=== PATIENT | male | born 1970 | race Caucasian/White ===

== ENCOUNTER 2023-10-05 10:24 | Emergency (ER) | payer OTHER, SELFPAY ==
[2023-10-05] VITALS (35 sets, daily range): BP systolic 128–157; BP diastolic 87–120; PULSE 64–93; RESP 18; TEMP 36.7; O2SAT 89–96; BMI 27.0
--- NOTE | 2023-10-05 11:08 | ED.GENADULT ---
HPI - General Adult General Time Seen by Provider: 11:08 Date Seen: 10/05/23 Chief complaint: Weakness Stated complaint: Tingly in legs / chest Time Seen by Provider: 10/05/23 11:03 Source: patient, RN notes reviewed and old records reviewed Mode of arrival: ambulatory Limitations: no limitations History of Present Illness HPI narrative: 52-year-old male who presents today with paresthesias. Patient reports ?tingling? and his arms, legs, chest as well as generalized weakness. Reports he was seen at an outside facility 2 days ago, no records are available in patient does not know what findings were. No bowel or bladder incontinence. The patient reports after intercourse he laid down when he tried to get up he had some back pain and weakness in his legs. Since then he has had fairly consistent the weakness and numbness in the legs with some numbness in the arms and occasional shooting paresthesias and pain into the arms and legs. He denies headache, has had some intermittent blurry vision. He has some point chest pain on the anterior just to the right of midline. No shortness of breath, nausea, vomiting, urinary symptoms, abdominal pain. No difficulty walking but says he did some walk far because he feels like his legs might give out. History of hypertension. Related Data Home Medications Medication Instructions Recorded Confirmed amlodipine 2.5 mg tablet 2.5 mg PO DAILY 10/05/23 10/05/23 atorvastatin 10 mg tablet 10 mg PO DAILY 10/05/23 10/05/23 chlorthalidone 25 mg tablet 25 mg PO DAILY 10/05/23 10/05/23 lisinopril 20 mg tablet 20 mg PO DAILY 10/05/23 10/05/23 omeprazole 20 mg tablet,delayed 20 mg PO DAILY 10/05/23 10/05/23 release ropinirole 0.5 mg tablet 0.5 mg PO DAILY 10/05/23 10/05/23 Allergies Allergy/AdvReac Type Severity Reaction Status Date / Time acetaminophen [From Vicodin] AdvReac Mild Rash Verified 10/05/23 10:36 hydrocodone [From Vicodin] AdvReac Mild Rash Verified 10/05/23 10:36 [facility] PFS Social History Smoking Status: Current every day smoker What tobacco products do you use: cigarettes Smoking packs per day: 1.5 Smoking cigarettes per day: 30.0 Do you use any of these nicotine containing products: None How often do you have a drink containing alcohol: never How often do you have six or more drinks on one occasion: Never AUDIT-C Alcohol total score: 0 Non-prescribed substance use: marijuana (any form) Exam Narrative: Exam Narrative: General: Well-developed and well-nourished, no acute distress Head: Atraumatic and normocephalic Eyes: Pupils are equal reactive, extraocular motions intact, conjunctiva clear ENT: External nose and ears are normal, posterior pharynx without erythema or exudate Neck: No midline cervical tenderness, full spontaneous range of motion the neck, trachea midline, no adenopathy Heart: Regular rate and rhythm no murmurs or thrills Lungs: Clear to auscultation bilaterally without wheezes or crackles Abdomen: Soft, nontender, nondistended with active bowel sounds Musculoskeletal: No tenderness, deformity, or edema Neurologic: Awake, alert, and oriented x3. External ocular movements are intact, no diplopia on exam. Pupils are equal and reactive. No upper extremity drift. No lower extremity drift but legs bilaterally are little bit weak. Sensation of the upper lower extremities is intact. Coordination intact with hcadsy-ii-ktyu testing as well as wquf-wu-ysil testing. Psych: Mood and affect are appropriate Skin: No rashes Const: Vital Signs, click to edit/add: Vital Signs - 24 hr 10/05/23 10:30 10/05/23 10:42 10/05/23 10:43 Temperature 98.1 F Pulse Rate 82 89 Pulse Rate [Right Pulse Oximeter] 93 Respiratory Rate 18 Blood Pressure 151/95 H Blood Pressure [Ri ght Upper Arm] 147/93 H Pulse Oximetry 94 93 96 Oxygen Delivery Me thod Room Air 10/05/23 10:45 10/05/23 10:46 10/05/23 11:00 Temperature Pulse Rate 85 89 87 Pulse Rate [Right Pulse Oximeter] Respiratory Rate Blood Pressure 156/96 H Blood Pressure [Ri ght Upper Arm] Pulse Oximetry 93 96 93 Oxygen Delivery Me thod 10/05/23 11:01 10/05/23 11:01 10/05/23 11:15 Temperature Pulse Rate 77 77 81 Pulse Rate [Right Pulse Oximeter] Respiratory Rate Blood Pressure 132/95 H 132/95 H Blood Pressure [Ri ght Upper Arm] Pulse Oximetry 93 93 92 Oxygen Delivery Me thod 10/05/23 11:16 10/05/23 11:30 10/05/23 11:31 Temperature Pulse Rate 75 80 Pulse Rate [Right Pulse Oximeter] Respiratory Rate Blood Pressure 138/87 139/120 H Blood Pressure [Ri ght Upper Arm] Pulse Oximetry 92 93 Oxygen Delivery Me thod 10/05/23 11:45 10/05/23 11:46 10/05/23 12:00 Temperature Pulse Rate 73 77 75 Pulse Rate [Right Pulse Oximeter] Respiratory Rate Blood Pressure 140/94 H Blood Pressure [Ri ght Upper Arm] Pulse Oximetry 93 95 93 Oxygen Delivery Me thod 10/05/23 12:01 10/05/23 12:28 10/05/23 12:30 Temperature Pulse Rate 72 65 69 Pulse Rate [Right Pulse Oximeter] Respiratory Rate Blood Pressure 128/99 H Blood Pressure [Ri ght Upper Arm] Pulse Oximetry 94 92 93 Oxygen Delivery Me thod 10/05/23 12:31 10/05/23 12:45 10/05/23 12:46 Temperature Pulse Rate 69 71 73 Pulse Rate [Right Pulse Oximeter] Respiratory Rate Blood Pressure 136/90 H 141/95 H Blood Pressure [Ri ght Upper Arm] Pulse Oximetry 92 92 91 Oxygen Delivery Me thod 10/05/23 13:01 10/05/23 13:15 10/05/23 13:30 Temperature Pulse Rate 68 68 68 Pulse Rate [Right Pulse Oximeter] Respiratory Rate Blood Pressure 133/95 H Blood Pressure [Ri ght Upper Arm] Pulse Oximetry 90 91 89 Oxygen Delivery Me thod 10/05/23 13:31 10/05/23 13:46 10/05/23 14:01 Temperature Pulse Rate 69 64 65 Pulse Rate [Right Pulse Oximeter] Respiratory Rate Blood Pressure 129/96 H 137/95 H Blood Pressure [Ri ght Upper Arm] Pulse Oximetry 93 90 90 Oxygen Delivery Me thod 10/05/23 14:02 10/05/23 14:31 10/05/23 14:33 Temperature Pulse Rate 65 67 75 Pulse Rate [Right Pulse Oximeter] Respiratory Rate Blood Pressure 144/96 H Blood Pressure [Ri ght Upper Arm] Pulse Oximetry 90 93 93 Oxygen Delivery Me thod 10/05/23 14:34 10/05/23 14:45 10/05/23 15:01 Temperature Pulse Rate 69 69 69 Pulse Rate [Right Pulse Oximeter] Respiratory Rate Blood Pressure 157/98 H Blood Pressure [Ri ght Upper Arm] Pulse Oximetry 93 92 95 Oxygen Delivery Me thod 10/05/23 15:16 10/05/23 15:30 10/05/23 15:31 Temperature Pulse Rate 70 72 72 Pulse Rate [Right Pulse Oximeter] Respiratory Rate Blood Pressure 157/92 H Blood Pressure [Ri ght Upper Arm] Pulse Oximetry 94 94 93 Oxygen Delivery Me thod Course Course ED Course: Patient seen and examined, prior records reviewed. Patient presents with several days of diffuse paresthesias in lower extremity weakness. Denies neck pain and has full spontaneous range of motion the neck, did have some back pain at onset of symptoms but that has resolved, no double vision. Patient was seen in outside facility? they did do anything? including imaging or blood testing. Consider neurologic dysfunction, including possible spinal epidural hemorrhage given onset after intercourse. No headache, intracerebral pathology is unlikely but CT scan is ordered to evaluate. We plan on MRI of the spine to evaluate for mass, hemorrhage, or neuro degenerative condition. Denies history of alcohol use so alcoholic neuropathy is unlikely, also consider Guillain-Clayton syndrome but clinically this is unlikely given symptom onset and progression. Multiple sclerosis or other neurodegenerative condition possible. Reevaluation(s) Time of Reevaluation #1: 13:47 Reevaluation #1: Labs ordered and independently interpreted by me with mild leukocytosis, reassuring basic metabolic panel, reassuring hepatic panel, normal magnesium, normal CK. CT scan of the head independently interpreted by me negative for acute findings, CT scan of the cervical spine intubated by radiology and reviewed does not demonstrate any acute findings. Time of Reevaluation #2: 18:20 Reevaluation #2: MRI of the cervical spine demonstrates C5-6 moderate spinal canal and moderate to severe neuroforaminal stenosis with impingement on the C6 nerves, also at L4-5 small disc protrusion which abuts the left L5 nerves with some neural foraminal narrowing. Mild speech dental canal narrowing at T6-7. Overall, patient is having some upper extremity symptoms which may be from the C6 nerve impingement. Patient will be started on prednisone taper and should follow-up with spine surgery. Vital Signs Vital signs: Initial Vital Signs Temperature 98.1 F 10/05/23 10:30 Temperature Source Temporal Artery Scan 10/05/23 10:30 Pulse Rate 93 10/05/23 10:30 Pulse Rhythm Regular 10/05/23 10:30 Respiratory Rate 18 10/05/23 10:30 Blood Pressure 147/93 H 10/05/23 10:30 Blood Pressure Mean 111 H 10/05/23 10:30 Blood Pressure Position Sitting 10/05/23 10:30 Pulse Oximetry 94 10/05/23 10:30 Oxygen Delivery Method Room Air 10/05/23 10:30 Vital Signs Temperature 98.1 F 10/05/23 10:30 Pulse Rate 93 10/05/23 10:30 Respiratory Rate 18 10/05/23 10:30 Blood Pressure 147/93 H 10/05/23 10:30 Pulse Oximetry 94 10/05/23 10:30 Oxygen Delivery Method Room Air 10/05/23 10:30 Temperature 98.1 F 10/05/23 10:30 Pulse Rate 72 10/05/23 15:31 Respiratory Rate 18 10/05/23 10:30 Blood Pressure 157/92 H 10/05/23 15:31 Pulse Oximetry 93 10/05/23 15:31 Oxygen Delivery Method Room Air 10/05/23 10:30 Medical Decision Making Lab Data Labs: Lab Results 10/05/23 Range/Units 11:40 WBC 11.31 H (4.50-11.00) K/uL RBC 5.54 (4.30-5.90) m/uL Hgb 16.1 (13.5-17.5) gm/dL Hct 49.6 (37.0-53.0) % MCV 90 (80-100) fL MCH 29 (26-34) pg MCHC 33 (32-36) gm/dL RDW Coeff of Hayder 13.7 (11.5-15.5) % Plt Count 267 (140-440) K/uL Neut % (Auto) 70.6 (42.0-72.0) % Lymph % (Auto) 22.0 (20-44) % [place] % (Auto) 5.2 (0.0-11.0) % Eos % (Auto) 1.8 (0.0-7.0) % Baso % (Auto) 0.3 (0.0-3.0) % Neut # (Auto) 8.00 H (1.7-7.0) K/uL Lymph # (Auto) 2.50 (0.90-2.90) K/uL [place] # (Auto) 0.60 (0.00-0.90) K/UL Eos # (Auto) 0.20 (0.00-0.50) K/uL Baso # (Auto) 0.00 (0.00-0.30) K/uL Abs Immat Gran (auto) 0.00 (0.00-0.30) K/uL Imm/Tot Granulo (auto) 0.1 % Sodium 142 (135-149) mmol/L Potassium 3.4 L (3.6-5.1) mmol/L Chloride 103 (96-114) mmol/L Carbon Dioxide 28 (20-32) mmol/L Anion Gap 11 (7-15) mEq/L BUN 19 (7-30) mg/dL Creatinine 0.7 (0.5-1.5) mg/dL Estimated Creat Clear 145.15 Estimated GFR 112 ml/min Glucose 69 (60-115) mg/dL Calcium 9.7 (8.4-10.6) mg/dL Magnesium 2.2 (1.5-2.6) mg/dL Total Bilirubin 0.5 (0.1-1.5) mg/dL Direct Bilirubin 0.2 (0.0-0.5) mg/dL AST 23 (12-35) U/L ALT 23 (4-50) U/L Alkaline Phosphatase 96 (40-150) U/L Total Creatine Kinase 45 L (54-186) U/L Total Protein 8.2 (6.0-8.3) g/dL Albumin 4.6 (3.3-5.0) g/dL Discharge Plan Discharge Clinical Impression: Paresthesia, Cervical spinal stenosis, C6 radiculopathy Patient Disposition: Home, Self-Care Condition: Stable Instructions: Cervical Spinal Stenosis (ED), Paresthesia (ED) Additional Instructions: Call [facility] ([phone]) or [facility] ([phone], ) to schedule an appointment. Take prednisone as prescribed Activity Level: No strenuous activity Discharge Diet: Regular Prescriptions: No Action chlorthalidone 25 mg tablet 25 mg PO DAILY amlodipine 2.5 mg tablet 2.5 mg PO DAILY lisinopril 20 mg tablet 20 mg PO DAILY omeprazole 20 mg tablet,delayed release (DR/EC) 20 mg PO DAILY ropinirole 0.5 mg tablet 0.5 mg PO DAILY atorvastatin 10 mg tablet 10 mg PO DAILY Follow Up/Referrals: Provider,Not a Local [Primary Care Provider] - Stand Alone Forms: [employer] Info Instructions
--- NOTE | 2023-10-05 11:31 | CT_ITS ---
Patient: ARMIDA HOYOS Facility:?[facility] Patient ID:?[id number] Site Patient ID:?[id number]. Site :?1970 Study:?CT-Spine Cervical w/o-10/05/2023 12:25:50 PM Ordering Physician:Mj Sharpe Final Report: INDICATION: Paresthesia. TECHNIQUE: CT cervical spine without contrast. COMPARISON: None. FINDINGS: Vertebrae: Alignment is normal. There are no fractures or suspicious bony lesions. Discs and facet joints: There are minimal diffuse degenerative changes in the disc spaces and facet joints. Extraspinal findings: Paraspinous soft tissues are unremarkable. IMPRESSION: 1. No sign of acute injury. 2. Multilevel degenerative spondylosis. Please note that all CT scans at this facility use dose modulation, iterative reconstruction, and/or weight-based dosing when appropriate to reduce radiation dose to as low as reasonably achievable. Dictated by Andrea Junior MD @ 10/05/2023 12:38:28 PM Signed by:?Andrea Junior MD @10/05/2023 12:38:28 PM (Electronic Signature)
--- NOTE | 2023-10-05 11:32 | CT_ITS ---
Patient: ARMIDA HOYOS Facility:?[facility] Patient ID:?[id number] Site Patient ID:?[id number]. Site :?1970 Study:?CT-Head w/o-10/05/2023 12:25:12 PM Ordering Physician:Mj Sharpe Final Report: INDICATION: . TECHNIQUE: CT head without contrast. COMPARISON: None. FINDINGS: CSF spaces: Within normal limits for age. Brain parenchyma and extra-axial spaces: The benites-white differentiation is normal. No sign of mass, hemorrhage, or midline shift. No extra-axial fluid collection. Skull base and calvarium: The visualized paranasal sinuses and mastoid air cells demonstrate no acute or significant findings. The visualized orbits are grossly unremarkable. No skull fractures. No radiopaque foreign bodies about the orbits. IMPRESSION: No acute intracranial abnormality on this noncontrast CT scan. Please note that all CT scans at this facility use dose modulation, iterative reconstruction, and/or weight-based dosing when appropriate to reduce radiation dose to as low as reasonably achievable. Dictated by Andrea Junior MD @ 10/05/2023 12:34:23 PM Signed by:?Andrea Junior MD @10/05/2023 12:34:23 PM (Electronic Signature)
[2023-10-05 12:02] LABS: Basophils Percent Auto 0.3 % (0.0-3.0); Eosinophils Percent Auto 1.8 % (0.0-7.0); Hematocrit 49.6 % (37.0-53.0); Hemoglobin* 16.1 gm/dL (13.5-17.5); Immature Granulocytes Pct Auto 0.1 %; Mean Corpuscular HGB Conc 33 gm/dL (32-36); Mean Corpuscular Hemoglobin 29 pg (26-34); Mean Corpuscular Volume 90 fL (80-100); Monocytes Percent Auto 5.2 % (0.0-11.0); Neutrophils Percent Auto 70.6 % (42.0-72.0); Platelet Count* 267 K/uL (140-440); RDW Coefficient of Variation % 13.7 % (11.5-15.5); Red Blood Count 5.54 m/uL (4.30-5.90); White Blood Count* 11.31 K/uL (4.50-11.00)
--- NOTE | 2023-10-05 12:15 | MR_ITS ---
Patient: ARMIDA HOYOS Facility:?[facility] Patient ID:?[id number] Site Patient ID:?[id number]. Site :?1970 Study:?MRI-Spine Thoracic W/WO 20 CC DOTAREM-10/05/2023 5:46:05 PM Ordering Physician:VELIA BARFIELD Final Report: Indication: Numbness. Weakness. Technique: MRI of the cervical spine was performed without and with the use of intravenous contrast. MRI of the thoracic spine was performed without and with the use of intravenous contrast. MRI of the lumbar spine was performed without and with the use of intravenous contrast. Contrast: 20 cc Dotarem. Comparison: CT cervical spine same day. Findings: Cervical: The vertebral body heights are maintained without evidence of fracture. No marrow infiltrative process. Mild multilevel disc desiccation and height loss. Straightening of the cervical lordosis. No abnormal cord signal. No abnormal enhancement. C2-3: No spinal canal or neural foraminal narrowing. C3-4: No spinal canal narrowing. Mild neural foraminal narrowing secondary to uncovertebral joint and facet hypertrophy. C4-5: No spinal canal narrowing. Mild neural foraminal narrowing secondary to uncovertebral joint and facet hypertrophy. C5-6: Disc bulge results in whem-ow-gswbruqo spinal canal narrowing. Moderately severe neural foraminal narrowing secondary to uncovertebral joint and facet hypertrophy. Potential impingement of the C6 nerves. C6-7: No spinal canal or neural foraminal narrowing. C7-T1: No spinal canal or neural foraminal narrowing. Thoracic: The thoracic vertebral body heights are maintained without evidence of fracture. No discrete T1 hypointense marrow infiltrative process. Mild multilevel disc height loss and degeneration, moderate at T6-7. Hemangioma within the T9 vertebral body. T6-7: Disc bulge effaces the ventral thecal sac and results in mild spinal canal narrowing. No neural foraminal narrowing. Minimal spondylosis throughout the remaining thoracic levels. No abnormal cord signal or enhancement. Lumbar: There are 5 lumbar type vertebral segments. No marrow infiltrative process. No significant spondylolisthesis. The conus medullaris terminates at L1, normal. Cauda equina appears unremarkable. No abnormal enhancement. T12-L1: No spinal canal or neural foraminal stenosis. L1-2: No spinal canal or neural foraminal stenosis. L2-3: Disc bulge coupled with facet hypertrophy results in mild spinal canal narrowing. Mild neural foraminal narrowing. Mild facet arthropathy. L3-4: Disc degeneration. Disc bulge coupled with facet hypertrophy results in mild spinal canal narrowing. Qhbo-sr-echxpsud right and mild left neural foraminal narrowing. Mild facet arthropathy. L4-5: Disc degeneration. Disc bulge, with superimposed small left subarticular disc protrusion. Disc protrusion abuts the descending left L5 nerves. Mild to moderate left and mild right neural foraminal narrowing. Moderate facet arthropathy. L5-S1: No spinal canal or neural foraminal stenosis. Mild sacroiliac joint osteoarthritis. Impression: Cervical: 1. At C5-6, mild to moderate spinal canal with moderately severe neural foraminal stenosis. Potential impingement of the C6 nerves. 2. Moderate spondylosis at the remaining cervical levels. 3. No abnormal cord signal or enhancement. Thoracic: 1. At T6-7, mild spinal canal narrowing. 2. No abnormal cord signal or enhancement. Lumbar: 1. At L2-3, mild spinal canal and neural foraminal narrowing. 2. At L3-4, mild spinal canal with idix-di-sesrryjw right and mild left neural foraminal narrowing. 3. At L4-5, small left subarticular disc protrusion abuts the descending left L5 nerves. Mild to moderate left and mild right neural foraminal narrowing. 4. No abnormal enhancement. Dictated by Demetrius Ashley MD @ 10/05/2023 6:14:58 PM Signed by:?Demetrius Ashley MD @10/05/2023 6:14:58 PM (Electronic Signature)
--- NOTE | 2023-10-05 12:15 | MR_ITS ---
Patient: ARMIDA HOYOS Facility:?[facility] Patient ID:?[id number] Site Patient ID:?[id number]. Site :?1970 Study:?MRI-Spine Cervical W/WO 20 CC DOTAREM-10/05/2023 5:47:32 PM Ordering Physician:VELIA BARFIELD Final Report: Indication: Numbness. Weakness. Technique: MRI of the cervical spine was performed without and with the use of intravenous contrast. MRI of the thoracic spine was performed without and with the use of intravenous contrast. MRI of the lumbar spine was performed without and with the use of intravenous contrast. Contrast: 20 cc Dotarem. Comparison: CT cervical spine same day. Findings: Cervical: The vertebral body heights are maintained without evidence of fracture. No marrow infiltrative process. Mild multilevel disc desiccation and height loss. Straightening of the cervical lordosis. No abnormal cord signal. No abnormal enhancement. C2-3: No spinal canal or neural foraminal narrowing. C3-4: No spinal canal narrowing. Mild neural foraminal narrowing secondary to uncovertebral joint and facet hypertrophy. C4-5: No spinal canal narrowing. Mild neural foraminal narrowing secondary to uncovertebral joint and facet hypertrophy. C5-6: Disc bulge results in hdim-ji-dhedzynn spinal canal narrowing. Moderately severe neural foraminal narrowing secondary to uncovertebral joint and facet hypertrophy. Potential impingement of the C6 nerves. C6-7: No spinal canal or neural foraminal narrowing. C7-T1: No spinal canal or neural foraminal narrowing. Thoracic: The thoracic vertebral body heights are maintained without evidence of fracture. No discrete T1 hypointense marrow infiltrative process. Mild multilevel disc height loss and degeneration, moderate at T6-7. Hemangioma within the T9 vertebral body. T6-7: Disc bulge effaces the ventral thecal sac and results in mild spinal canal narrowing. No neural foraminal narrowing. Minimal spondylosis throughout the remaining thoracic levels. No abnormal cord signal or enhancement. Lumbar: There are 5 lumbar type vertebral segments. No marrow infiltrative process. No significant spondylolisthesis. The conus medullaris terminates at L1, normal. Cauda equina appears unremarkable. No abnormal enhancement. T12-L1: No spinal canal or neural foraminal stenosis. L1-2: No spinal canal or neural foraminal stenosis. L2-3: Disc bulge coupled with facet hypertrophy results in mild spinal canal narrowing. Mild neural foraminal narrowing. Mild facet arthropathy. L3-4: Disc degeneration. Disc bulge coupled with facet hypertrophy results in mild spinal canal narrowing. Lmyc-we-ynrwjnys right and mild left neural foraminal narrowing. Mild facet arthropathy. L4-5: Disc degeneration. Disc bulge, with superimposed small left subarticular disc protrusion. Disc protrusion abuts the descending left L5 nerves. Mild to moderate left and mild right neural foraminal narrowing. Moderate facet arthropathy. L5-S1: No spinal canal or neural foraminal stenosis. Mild sacroiliac joint osteoarthritis. Impression: Cervical: 1. At C5-6, mild to moderate spinal canal with moderately severe neural foraminal stenosis. Potential impingement of the C6 nerves. 2. Moderate spondylosis at the remaining cervical levels. 3. No abnormal cord signal or enhancement. Thoracic: 1. At T6-7, mild spinal canal narrowing. 2. No abnormal cord signal or enhancement. Lumbar: 1. At L2-3, mild spinal canal and neural foraminal narrowing. 2. At L3-4, mild spinal canal with hxqg-hx-jreqrrzi right and mild left neural foraminal narrowing. 3. At L4-5, small left subarticular disc protrusion abuts the descending left L5 nerves. Mild to moderate left and mild right neural foraminal narrowing. 4. No abnormal enhancement. Dictated by Demetrius Ashley MD @ 10/05/2023 6:13:47 PM Signed by:?Demetrius Ashley MD @10/05/2023 6:13:47 PM (Electronic Signature)
--- NOTE | 2023-10-05 12:15 | MR_ITS ---
Patient: ARMIDA HOYOS Facility:?[facility] RIS Patient ID:?[id number] Site Patient ID:?[id number]. Site :?1970 Study:?MRI-Spine Lumbar W/WO 20 CC DOTAREM-10/05/2023 5:48:50 PM Ordering Physician:VELIA BARFIELD Final Report: Indication: Numbness. Weakness. Technique: MRI of the cervical spine was performed without and with the use of intravenous contrast. MRI of the thoracic spine was performed without and with the use of intravenous contrast. MRI of the lumbar spine was performed without and with the use of intravenous contrast. Contrast: 20 cc Dotarem. Comparison: CT cervical spine same day. Findings: Cervical: The vertebral body heights are maintained without evidence of fracture. No marrow infiltrative process. Mild multilevel disc desiccation and height loss. Straightening of the cervical lordosis. No abnormal cord signal. No abnormal enhancement. C2-3: No spinal canal or neural foraminal narrowing. C3-4: No spinal canal narrowing. Mild neural foraminal narrowing secondary to uncovertebral joint and facet hypertrophy. C4-5: No spinal canal narrowing. Mild neural foraminal narrowing secondary to uncovertebral joint and facet hypertrophy. C5-6: Disc bulge results in vinp-eq-vcidkgcm spinal canal narrowing. Moderately severe neural foraminal narrowing secondary to uncovertebral joint and facet hypertrophy. Potential impingement of the C6 nerves. C6-7: No spinal canal or neural foraminal narrowing. C7-T1: No spinal canal or neural foraminal narrowing. Thoracic: The thoracic vertebral body heights are maintained without evidence of fracture. No discrete T1 hypointense marrow infiltrative process. Mild multilevel disc height loss and degeneration, moderate at T6-7. Hemangioma within the T9 vertebral body. T6-7: Disc bulge effaces the ventral thecal sac and results in mild spinal canal narrowing. No neural foraminal narrowing. Minimal spondylosis throughout the remaining thoracic levels. No abnormal cord signal or enhancement. Lumbar: There are 5 lumbar type vertebral segments. No marrow infiltrative process. No significant spondylolisthesis. The conus medullaris terminates at L1, normal. Cauda equina appears unremarkable. No abnormal enhancement. T12-L1: No spinal canal or neural foraminal stenosis. L1-2: No spinal canal or neural foraminal stenosis. L2-3: Disc bulge coupled with facet hypertrophy results in mild spinal canal narrowing. Mild neural foraminal narrowing. Mild facet arthropathy. L3-4: Disc degeneration. Disc bulge coupled with facet hypertrophy results in mild spinal canal narrowing. Dait-ji-tdiwegbt right and mild left neural foraminal narrowing. Mild facet arthropathy. L4-5: Disc degeneration. Disc bulge, with superimposed small left subarticular disc protrusion. Disc protrusion abuts the descending left L5 nerves. Mild to moderate left and mild right neural foraminal narrowing. Moderate facet arthropathy. L5-S1: No spinal canal or neural foraminal stenosis. Mild sacroiliac joint osteoarthritis. Impression: Cervical: 1. At C5-6, mild to moderate spinal canal with moderately severe neural foraminal stenosis. Potential impingement of the C6 nerves. 2. Moderate spondylosis at the remaining cervical levels. 3. No abnormal cord signal or enhancement. Thoracic: 1. At T6-7, mild spinal canal narrowing. 2. No abnormal cord signal or enhancement. Lumbar: 1. At L2-3, mild spinal canal and neural foraminal narrowing. 2. At L3-4, mild spinal canal with ibor-qa-sarbapdq right and mild left neural foraminal narrowing. 3. At L4-5, small left subarticular disc protrusion abuts the descending left L5 nerves. Mild to moderate left and mild right neural foraminal narrowing. 4. No abnormal enhancement. Dictated by Demetrius Ashley MD @ 10/05/2023 6:16:12 PM Signed by:?Demetrius Ashley MD @10/05/2023 6:16:12 PM (Electronic Signature)
[2023-10-05 12:16] LABS: Slide Review Reflex No
[2023-10-05 12:19] LABS: Albumin* 4.6 g/dL (3.3-5.0)
[2023-10-05 12:22] LABS: Aspartate Amino Transferase* 23 U/L (12-35); Bilirubin Direct* 0.2 mg/dL (0.0-0.5); Bilirubin Total* 0.5 mg/dL (0.1-1.5); Creatine Kinase* 45 U/L (54-186); Total Protein* 8.2 g/dL (6.0-8.3)
[2023-10-05 12:23] LABS: Alanine Aminotransferase* 23 U/L (4-50); Alkaline Phosphatase* 96 U/L (40-150)
[2023-10-05 12:40] LABS: Chloride* 103 mmol/L (96-114); Potassium* 3.4 mmol/L (3.6-5.1); Sodium* 142 mmol/L (135-149)
[2023-10-05 12:43] LABS: Anion Gap 11 mEq/L (7-15); Carbon Dioxide* 28 mmol/L (20-32); Creatinine* 0.7 mg/dL (0.5-1.5); Est. Creatinine Clearance* 145.15; Estimated Glomerular Filt Rate 112 ml/min
[2023-10-05 12:44] LABS: Blood Urea Nitrogen* 19 mg/dL (7-30); Calcium* 9.7 mg/dL (8.4-10.6); Glucose* 69 mg/dL (60-115); Magnesium* 2.2 mg/dL (1.5-2.6)
--- NOTE | 2023-10-05 16:31 | ED.NURSE ---
unable to assess, pt in imaging
--- NOTE | 2023-10-05 17:14 | ED.NURSE ---
Pt in imaging, unable to assess
== END 2023-10-05 18:35 | disposition home or self-care (01) ==
PROVIDERS: Emergency Provider Family Medicine
DX: M48.02 Spinal stenosis, cervical region (principal); M54.12 Radiculopathy, cervical region; R20.2 Paresthesia of skin
CPT/HCPCS: 36415; 70450; 72125; 72156; 72157; 72158; 80048; 80076; 82550; 83735; 85025; 99284; 99285; A9575

== ENCOUNTER 2023-12-18 08:57 | Outpatient (CLI) | payer OTHER, SELFPAY | END 2023-12-18 08:58 | disposition home or self-care (01) | PROVIDERS: PCP Family Medicine; Visit Provider Family Medicine | DX: E78.2 Mixed hyperlipidemia (principal); I10 Essential (primary) hypertension; Z13.0 Encounter for screening for diseases of the blood and blood-forming organs and certain disorders involving the immune mechanism | CPT/HCPCS: 80048; 80061; 84460; 85025 ==

== ENCOUNTER 2025-05-12 08:52 | Outpatient (CLI) | payer OTHER, SELFPAY | END 2025-05-12 08:53 | disposition home or self-care (01) | PROVIDERS: PCP Family Medicine; Visit Provider Family Medicine | DX: Z01.818 Encounter for other preprocedural examination (principal); Z13.9 Encounter for screening, unspecified; E78.2 Mixed hyperlipidemia; I10 Essential (primary) hypertension | CPT/HCPCS: 80048; 80061; 85025; G0103 ==

== ENCOUNTER 2025-05-26 08:55 | Emergency (ER) | payer OTHER, SELFPAY ==
[2025-05-26 08:57] VITALS: BP 137/93; PULSE 94; RESP 18; TEMP 36.7; O2SAT 95; BMI 28.2
--- NOTE | 2025-05-26 09:15 | CRLHL7_ITS ---
For Patients: As a result of the Century Cures Act, medical imaging exams and procedure reports are released immediately into your electronic medical record. You may view this report before your referring provider. If you have questions, please contact your health care provider. INDICATION: Dyspnea, chest pain TECHNIQUE: One view chest COMPARISON: None. FINDINGS: Monitoring leads overlie the chest. Shallow lung volumes. Streaky opacities at the right lung base. Small area left lower lung subsegmental atelectasis. Normal cardiomediastinal silhouette. IMPRESSION: Bibasilar atelectasis. Dictated by Tee Rodríguez MD @ 05/26/2025 9:54:41 AM (Electronically Signed)
[2025-05-26] MEDS: ASPIRIN 81 MG TAB.CHEW 324 MG PO (09:28)
[2025-05-26 09:30] VITALS: BP 148/103; PULSE 87; PULSE 88; RESP 16; RESP 20; O2SAT 91; O2SAT 93; O2SAT 94
[2025-05-26 09:30] LABS: Hematocrit* 51.1 % (37.0-53.0); Hemoglobin* 16.5 gm/dL (13.5-17.5); Immature Granulocytes Abs Auto 0.03 K/uL (0.00-0.30); Immature Granulocytes Pct Auto 0.3 %; Lymphocytes Absolute Auto 2.30 K/uL (0.90-2.90); Mean Corpuscular HGB Conc 32 gm/dL (32-36); Mean Corpuscular Hemoglobin 29 pg (26-34); Mean Corpuscular Volume 89 fL (80-100); RDW Coefficient of Variation % 13.2 % (11.5-15.5); Red Blood Count* 5.76 m/uL (4.30-5.90); White Blood Count* 10.61 K/uL (4.50-11.00)
[2025-05-26 09:31] LABS: Slide Review Reflex No
[2025-05-26 09:34] LABS: Troponin, Point-of-Care* 0.00 ng/ml (0.01-0.04)
--- OUTSIDE RECORDS SUMMARY | 2025-05-26 09:36 | XMS_ITS | Clinical Summary ---
Author Organization [facility] Address [address] [place] [address] Care Team Providers Care Control Engineer Name Role Phone Angela Fay M.D. Primary Care Provider [phone] Source Comments Patient records contain information from all sites at [facility]. For routine questions regarding patient records, call [phone] during business hours, M-F 8:00 AM - 5:00 PM Central Time. Record requests for emergency care only can be directed to [phone] at any time.[facility] Allergies Active Allergy Reactions Criticality Noted Date Comments Hydrocodone-Acetaminophen Nausea Only,Rash 12/13 Vicodin Medications acetaminophen (TYLENOL) 500 mg capsule Take by mouth every 6 (six) hours as needed for pain. 1 tab po as needed Active lisinopriL (PRINIVIL,ZESTR IL) 20 mg tabletIndicatio ns:Hypertension Essential Primary Take 1 tablet (20 mg total) by mouth daily. 90 tablet 3 09/01/2023 Active chlorthalidone (HYGROTON) 25 mg tabletIndicatio ns:Hypertension Essential Primary Take 1 tablet (25 mg total) by mouth daily. 90 tablet 3 09/01/2023 Active atorvastatin (LIPITOR) 10 mg tabletIndicatio ns:Hypertension Essential Primary Take 1 tablet (10 mg total) by mouth daily. 90 tablet 3 09/01/2023 Active omeprazole (PriLOSEC) [address] capsuleIndicati ons:Gastroesoph ageal Reflux Disease Take 1 capsule (20 mg total) by mouth daily. 90 capsule 3 09/01/2023 Active amLODIPine (NORVASC) 2.5 mg tablet Take 1 tablet (2.5 mg total) by mouth daily. 90 tablet 3 09/29/2023 Active rOPINIRole (REQUIP) 0.5 mg tablet Take 0.5 tablets (0.25 mg total) by mouth at bedtime for 3 days, THEN 1 tablet (0.5 mg total) at bedtime for 3 days, THEN 2 tablets (1 mg total) at bedtime. 90 tablet 2 10/02/2023 Active meloxicam (Mobic) 15 mg tabletIndicatio ns:Tear Shoulder Labral Initial Right Take 1 tablet by mouth once daily 90 tablet 03/04/2024 Active Active Problems Problem Noted Date Diagnosed Date Weakness Leg 10/03/2023 Polyp Colon Adenomatous Personal History 022 Diverticulitis Colon 02/22/2022 Nicotine Dependence Cigarettes 02/09/2022 Spermatocele 12/08/2020 Hyperlipidemia 10/13/2020 Gastroesophageal Reflux Disease 10/13/2020 Hypertension Essential Primary 07/10/2020 Pain Low Back Unspecified 06/25/2019 Resolved Problems Problem Noted Date Diagnosed Date Resolved Date Diverticulitis 02/14/2022 02/22/2022 Encounters Date Type Department Care Team Description 04/16/2025 Orders Only [facility] Angela Fay M.D. Monitoring For Therapeutic Drug Therapy from Last 3 Months Immunizations Immunization Administration Dates Next Due Tdap 10/12/2020 Family History Medical History Relation Name Comments Hypertension Father Breast cancer (in one breast) Maternal Grandmother Cancer Maternal Grandmother Breast cancer (in one breast) Mother Cancer Mother Hypertension Mother Breast cancer (in one breast) Sister Hypertension Sister Diabetes type II Uncle maternal Testicular cancer Uncle Relation Name Status Comments Father Alive Maternal Grandmother Mother Alive Sister Alive Uncle Alive Social History Tobacco Use Types Packs/Day Years Used Date Smoking Tobacco: Every Day Cigarettes 1.5 37.5 Started: 12/13/1987 Passive Smoke Exposure: Current Smokeless Tobacco: Never Tobacco Cessation:Ready to Q uit: No; Counseling Given: Yes Comments:pt trying to quit 5-10 cigs daily Alcohol Use Standard Drinks/Week Comments Not Currently 0 (1 standard drink = 0.6 oz pur e alcohol) 1-2 beers annually Humiliation, Afraid, Rape, and Kick questionnair e Answer Date Recorded Within the last year, have y ou been afraid of your partner or ex-partner? No 03/01/2023 Within the last year, have y ou been humiliated or emotionally abused in other ways by your partner or ex-partner? No Within the last year, have y ou been kicked, hit, slapped, or otherwise physically hurt by your partner or ex-partner? No 03/01/2023 Within the last year, have y ou been raped or forced to have any kind of sexual activity by your partner or ex-partner? No 03/01/2023 Hunger Vital Sign Answer Date Recorded Within the past 12 months, y ou worried that your food would run out before you got the money to buy more. Never true 03/01/20 23 Ran Out of Food in the Last Year Not on file 03/01/2023 PRAPARE - Transportation Answer Date Re corded In the past 12 months, has l ack of transportation kept you from medical appointments or from getting medications? No 02/11 In the past 12 months, has l ack of transportation kept you from meetings, work, or from getting things needed for daily living? No 03/01/2023 Housing Stability Answer Date Recorded What is your living situation today? I have a [facility] place to live 03/01/2023 Education Answer Date Recorded What is the highest level of school you have completed or the highest degree you have received? 11th grade 10/12/2020 Sex and Gender Information Value Date Recorded Sex Assigned at Not on file Legal Sex Male 6:09 PM STONE TRIMMER Gender Identity Not on file Sexual Orientation Not on file Last Filed Vital Signs Vital Sign Reading Time Taken Comments Blood Pressure 109/73 10/17/2023 1:12 PM STONE TRIMMER Pulse 79 10/17/2023 1:12 PM STONE TRIMMER Temperature 36.3 C (97.4 F) 10/03/2023 9:58 AM STONE TRIMMER Respiratory Rate 23 06/14/2022 3:40 PM CDT Oxygen Saturation 95% 12/19/2022 10: 04 AM CDT Inhaled Oxygen Concentration - - Weight 96.1 kg (211 lb 13.8 oz) 10/03/2023 9:58 AM STONE TRIMMER Height 185 cm (6' 0.84) 09/01/2023 7:48 AM STONE TRIMMER Body Mass Index 28.08 09/01/2023 7:48 AM STONE TRIMMER Plan of Treatment Health Maintenance Due Date Last Done Comments CT Colonography 1970 Cologuard 1970 Lung Cancer Screening 1970 Hepatitis B Vaccines (1 of 3 - 19+ 3-dose series) 11/16/1990 Pneumococcal vaccine (50+ years) (1 of 2 - PCV) 11/16/1990 Zoster Vaccines (1 of 2) 11/16/2021 Depression Screening (Annual PHQ-2) 08/14/2024 Visit: Chronic Disease, age 18+ 09/01/2024 09/01/2023 Office Visit for Blood Pressure Check / Re-check 10/16/2024 10/17/2023 Tobacco Cessation counseling 10/16/2024 10/17/2023 Creatinine Level (Kidney Function Test) 10/30/2024 10/31/2023, 01/06/2023, 12/19/2022, Additional history exists Potassium Level 10/30/2024 10/31/2023, 12/13, 12/19/2022, Additional history exists Sodium Level 10/30/2024 10/31/2023, 12/13, 12/19/2022, Additional history exists COVID-19 Vaccine ( season) 2025 Influenza Vaccine (#1) 2025 Colonoscopy 09/21/2026 09/21/2023, 06/14/2022 Colorectal Cancer Surveillance 09/21/2026 Fasting Glucose for Diabetes Screening 10/30/2026 10/31/2023, 01/06/2023, 12/19/2022, Additional history exists Lipid (Cholesterol) Screening 12/07/2027 12/06/2022, 02/10/2022, 10/09/2020, Additional history exists DTaP,Tdap,and Td Vaccines (2 - Td or Tdap) 10/12/2030 10/12/2020 HIV Screening Completed 10/12/2020 Hepatitis C Screening Completed 10/12/2020 IPV Vaccines Aged Out No longer eligi ble based on patient's age to complete this topic Medical Devices Implanted Type Area Air Conditioning Supervisor Device Identifier Shelf Expiration Date Model / Serial / Lot [facility] Rs 235 - [id number] Implanted:Qty : 2 on 06/14/2022 by Pablo Fritz M.D. at [facility] Hardware e.g. pins/screws/ rods [employer] [id number] 12/14/2024 [id number] / / [id number] Procedures Procedure Name Priority Date/Time Associated Diagnosis Comments BASIC METABOLIC PANEL, S/P Routine 10/31/2023 9:59 AM CDT Monitoring For Therapeutic Drug Therapy LIPID PANEL, S Routine 12/06/2022 11:56 AM CDT Screening Lipid COLONOSCOPY Routine 06/14/2022 1:48 PM CDT Polyp Colon Adenomatous HCV AB SCRN W/REFLEX TO HCV PCR, S Routine 10/12/2020 9:21 AM STONE TRIMMER Health Maintenance Examination Adult HIV-1/-2 AG AND AB SCREEN, PLASMA Routine 10/12/2020 9:21 AM STONE TRIMMER Health Maintenance Examination Adult from Last 3 Months or Most Recently Relevant to Health Maintenance Results * Basic Metabolic Panel (10/31/2023 9:59 AM CDT) Potassium, P 3.6 3.6 - 5.2 mmol/L 10/31/2023 10:30 AM CDT OW[facility] Sodium, P 143 135 - 145 mmol/L 10/31/2023 10:30 AM CDT [facility] Chloride, P 106 98 - 107 mmol/L 10/31/2023 10:30 AM CDT [facility] Bicarbonate, P 28 22 - 29 mmol/L 10/31/2023 10:30 AM CDT [facility] Anion Gap, P 9 7 - 15 10/31/2023 10:30 AM CDT [facility] BUN (Blood Urea Nitrogen), P 21 8 - 24 mg/dL 10/31/2023 10:30 AM CDT [facility] Creatinine 0.80 0.74 - 1.35 mg/dL 10/31/2023 10:30 AM CDT [facility] Estimated GFR (eGFR) >90 >=60 mL/min/BSA 10/31/2023 10:30 AM CDT [facility] Comment: Estimated GFR calculated using the 2020 CKD_EPI creatinine equation. Calcium, Total, P 9.0 8.6 - 10.0 mg/dL 10/31/2023 10:30 AM CDT [facility] Glucose, P 107 70 - 140 mg/dL 10/31/2023 10:30 AM CDT [facility] Blood (Blood, Venous) 10/31/2023 9:59 AM CDT 10/31/2023 10:06 AM CDT us Angela Fay M.D. LAB BLOOD ADD-ON Final Result [facility] [address] [place] [address], [facility] [place] [address] [place] [address] * (ABNORMAL) Lipid Panel (12/06/2022 11:56 AM CDT) Triglycerides 56 mg/dL 12/06/2022 12:51 PM CDT [facility] Comment: ----REFERENCE VALUE---- Normal: <150 mg/dL Borderline High: 150-199 mg/dL High: 200-499 mg/dL Very High: > or =500 mg/dL Cholesterol, Total 151 mg/dL 2022 12:51 PM CDT [facility] Comment: ----REFERENCE VALUE---- Desirable: < 200 mg/dL Borderline High: 200 - 239 mg/dL High: > or = 240 mg/dL Cholesterol, LDL, Calculated 100 mg/dL 12/06/2022 12:51 PM CDT [facility] Comment: ----REFERENCE VALUE---- Desirable: <100 mg/dL Above Desirable: 100-129 mg/dL Borderline High: 130-159 mg/dL High: 160-189 mg/dL Very High: >=190 mg/dL ----ADDITIONAL INFORMATION---- LDL cholesterol calculated using the Shrestha/NIH equation. Cholesterol, HDL 39(L) >=40 mg/dL 12/07/19 12:51 PM CDT [facility] Cholesterol, Non-HDL, Calculated 112 mg/dL 12/06/2022 12:51 PM CDT [facility] Comment: ----REFERENCE VALUE---- Desirable: <130 mg/dL Above Desirable: 130-159 mg/dL Borderline High: 160-189 mg/dL High: 190-219 mg/dL Very High: > or =220 mg/dL Fasting (8 HR or more) No 12/06/2022 11:59 AM CDT [facility] Blood (Blood, Venous) 12/06/2022 11:56 AM CDT 12/06/2022 11:59 AM CDT us Dilan Lynn APRNNBibi LAB BLOOD ADD-ON Fi nal Result [facility] [address] [place] [address], [facility] [place] [address] [place] [address] * Colonoscopy (06/14/2022 1:48 PM CDT) Anatomical Region Laterality Modality Other 06/14/2022 1:48 PM CDT Impressions 06/14/2022 3:56 PM CDT Post-op Diagnoses: - Preparation of the colon was fair. - The examined portion of the ileum was normal. - Diverticulosis in the left colon. - One 20 mm polyp in the sigmoid colon, removed with a hot snare and removed using injection-lift and a hot snare. Resected and retrieved. Clips (MR conditional) were placed. 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 - One 8 mm polyp in the sigmoid colon, removed with a hot snare. Resected and retrieved. - Two 4 to 6 mm polyps in the transverse colon and in the cecum, removed with a cold snare. Resected and retrieved. - The examination was otherwise normal on direct and retroflexion views. Narrative 06/14/2022 3:56 PM CDT [facility] Patient Name: Oneil Day Date of : 1970 Age: 51 Gender: Male Procedure Date: 06/14/2022 Procedure: Colonoscopy Providers: Pablo Fritz MD Referring Provider: Sachin Liz Pre-op Diagnoses: Therapeutic procedure for known colon polyp Recommendation: - Await pathology results. - Return to referring physician as previously scheduled. - Follow up recommendations for patients with polyps identified during colonoscopy are impacted by several factors including polyp characteristics (size, number and histology), adequacy of colonic preparation and pertinent family history. For [facility] providers, detailed recommendations are available as an AskMayoExpert Care Process Model: <[email or web address] There may be some circumstances, specifically those patients with a personal or family history of significant colorectal neoplasms where these guidelines may not apply. Consider consultation in Gastroenterology for all other polyp findings or for patients who are not at average risk. Findings: The terminal ileum appeared normal. Multiple small and large-mouthed diverticula were found in the left colon. A 20 mm polyp was found in the sigmoid colon. The polyp was sessile. The polyp was removed with a hot snare. The polyp was removed with a saline injection-lift technique using a hot snare. Resection and retrieval were complete. To prevent bleeding after the polypectomy, two hemostatic clips were successfully placed (MR conditional). 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 There was no bleeding during, or at the end, of the procedure. An 8 mm polyp was found in the sigmoid colon. The polyp was sessile. The polyp was removed with a hot snare. Resection and retrieval were complete. Two sessile polyps were found in the transverse colon and cecum. The polyps were 4 to 6 mm in size. These polyps were removed with a cold snare. Resection and retrieval were complete. The exam was otherwise without abnormality on direct and retroflexion views. Procedural Details: The patient was seen, evaluated, history reviewed, airway and heart-lung exams were performed by licensed provider and were satisfactory for planned level of sedation care. The risks, benefits and alternatives for the procedure and sedation were discussed and informed consent was obtained. A procedural pause was conducted in the presence of assisting personnel to verify the correct patient identity and procedure to be performed. Throughout the procedure, the patient's blood pressure, pulse, and oxygen saturations were monitored continuously. The Pediatric Colonoscope was introduced through the anus and advanced to the 5 cm into the ileum. The colonoscopy was somewhat difficult due to restricted mobility of the colon. The patient tolerated the procedure well. The quality of the bowel preparation was evaluated using the BBPS ([place] Bowel Preparation Scale) with scores of: Right Colon = 2 (minor amount of residual staining, small fragments of stool and/or opaque liquid, but mucosa seen well), Transverse Colon = 2 (minor amount of residual staining, small fragments of stool and/or opaque liquid, but mucosa seen well) and Left Colon = 2 (minor amount of residual staining, small fragments of stool and/or opaque liquid, but mucosa seen well). The total BBPS score equals 6. The quality of the bowel preparation was fair. Complications: No immediate complications. Estimated blood loss: Minimal. Estimated Blood Loss: Estimated blood loss was minimal. Attending Participation: I personally performed the entire procedure. Pablo Fritz MD 06/14/2022 3:55:44 PM This report has been signed electronically. Number of Addenda: 0 Note Initiated On: 06/14/2022 1:48 PM Sachin Liz M.D. GI PROCEDURE ORDERABLES Fin al Result * HIV-1/-2 Ag and Ab Screen, Plasma (10/12/2020 9:21 AM STONE TRIMMER) HIV Ag/Ab Screen, P Negative Negative 10/13/2020 10:38 AM STONE TRIMMER [facility] Comment: Negative result does not rule out HIV infection. If exposure to HIV infection occurred <14 days ago, contact the laboratory to request addition of HIV-1 RNA detection / quantification test. HIV-1 p24 Ag Screen, P Negative Negative 10/13/2020 10:38 AM STONE TRIMMER [facility] Comment: Negative result does not rule out HIV infection. If exposure to HIV infection occurred <14 days ago, contact the laboratory to request addition of HIV-1 RNA detection / quantification test. HIV-1 Ab Screen, P Negative Negative 2020 10:38 AM STONE TRIMMER [facility] Comment: Negative result does not rule out HIV infection. If exposure to HIV infection occurred <14 days ago, contact the laboratory to request addition of HIV-1 RNA detection / quantification test. HIV-2 Ab Screen, P Negative Negative 2020 10:38 AM STONE TRIMMER [facility] Comment: Negative result does not rule out HIV infection. If exposure to HIV infection occurred <14 days ago, contact the laboratory to request addition of HIV-1 RNA detection / quantification test. Blood (Blood, Venous) 10/12/2020 9:21 AM STONE TRIMMER 10/12/2020 6:54 PM STONE TRIMMER Paxton SchusterC., P.A. LAB MICROBIOLOGY - BLOOD ORDERABLES Final Result [facility] [address] [place] [address], [facility] [place] [address] [place] [address] * HCV Ab Scrn w/Reflex to HCV PCR, Serum (10/12/2020 9:21 AM STONE TRIMMER) HCV Ab Screen, S Negative Negative 10/13/2020 8:24 AM STONE TRIMMER [facility] Comment:Ssolcu-di-duklkr rat io is <1.00. Blood (Blood, Venous) 10/12/2020 9:21 AM STONE TRIMMER 10/13/2020 7:22 AM STONE TRIMMER Paxton SchusterC., P.A. LAB MICROBIOLOGY - BLOOD ORDERABLES Final Result [facility] [address] [place] [address] [facility] Dept. of Laboratory Medicine and Pathology [address] [place] [address] from Last 3 Months or Most Recently Relevant to Health Maintenance Insurance [facility] [address] [place] [id number] [place] [employer] Advance Directives For more information, please contact: [phone] * Full Code (Latest Code Status on File) Date Activated Date Inactivated Comments 08/22/2019 4:08 PM 08/23/2019 12:07 PM Question Answer Comments Full Code: Not Discussed Due to: Patient not available * Full Code Date Activated Date Inactivated Comments 08/22/2019 11:20 AM 08/22/2019 4:08 PM Question Answer Comments Full Code: Not Discussed Due to: Patient not available Care Teams Control Engineer Relationship Specialty Start Date End Date Angela Fay M.D. [address] [place] [address] PCP - General 09/01/22
--- OUTSIDE RECORDS SUMMARY | 2025-05-26 09:36 | XMS_ITS | Encounter Summary ---
Author Organization [facility] Address [address] [place] [address] Care Team Providers Care Physician Practice Consultant Name Role Phone Angela Fay M.D. Primary Care Provider [phone] Reason for Referral * Outpatient (Routine) - Authorized Specialty Diagnoses / Procedures Referred By Vincent t Referred To Contact Angela Fay M.D. [address] [phone] Phone: tel: fax: [facility] Referral ID Status Reason Start Date Expiration Date V isits Requested Visits Authorized [id number] Authorized 04/16/2025 10/16/2026 1 1 Encounter Details Date Type Department Care Team (Late st Contact Info) Description 04/16/2025 Orders Only [facility] Angela Fay M.D. [address] [place] [phone] Monitoring For Therapeutic Drug Therapy Social History Tobacco Use Types Packs/Day Years Used Date Smoking Tobacco: Every Day Cigarettes 1.5 37.5 Started: 12/13/1987 Passive Smoke Exposure: Current Smokeless Tobacco: Never Comments:pt trying to quit 5 -10 cigs daily Alcohol Use Standard Drinks/Week Comments [...] your living situation today? I have a [facility] place to live 03/01/2023 Education Answer Date Recorded What is the highest level of school you have completed or the highest degree you have received? 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 [address] [phone] PCP - General 09/01/22 documented as of this encounter
--- OUTSIDE RECORDS SUMMARY | 2025-05-26 09:36 | XMS_ITS | Clinical Summary ---
Author Organization [facility] Address [address] [place] [id number] Care Team Providers Care Transport Tank Technician Name Role Phone Jamin Sheth MD Primary Care Provider Allergies Active Allergy Reactions Criticality Noted Date Comments Hydrocodone-Acetaminophen Nausea,Rash Low 1 Vicodin Medications amLODIPine (NORVASC) 2.5 MG tablet Take 2.5 mg by mouth daily 4 Active atorvastatin (LIPITOR) 10 MG tablet Take 10 mg by mouth daily 4 Active chlorthalidone (HYGROTON) 25 MG tablet Take 25 mg by mouth daily 3 Active lisinopril (ZESTRIL) 20 MG tablet Take 20 mg by mouth daily 3 Active omeprazole (PRILOSEC) [address] capsule Take 20 mg by mouth daily 4 Active rOPINIRole (REQUIP) 0.5 MG tablet Take 0.5 tablets (0.25 mg total) by mouth at bedtime for 3 days, THEN 1 tablet (0.5 mg total) at bedtime for 3 days, THEN 2 tablets (1 mg total) at bedtime. 4 Active gabapentin (NEURONTIN) 300 MG capsule Take 300 mg by mouth 2 times daily Active senna-docusate (SENOKOT-S/PERIC OLACE) 8.6-50 MG tabletIndication s:S/P cervical disc replacement Take 1-2 tablets by mouth 2 times daily Take while on oral narcotics to prevent or treat constipation. 30 tablet 4 Active ondansetron (ZOFRAN ODT) 4 MG ODT tabIndications:S /P cervical disc replacement Take 1 tablet (4 mg) by mouth every 6 hours as needed for nausea or vomiting 20 tablet 4 Active hydrOXYzine HCl (ATARAX) 25 MG tabletIndication s:S/P cervical disc replacement Take 1 tablet (25 mg) by mouth every 6 hours as needed for itching or anxiety (with pain, moderate pain) 30 tablet 4 Active Social History Tobacco Use Types Packs/Day Years Used Date Smoking Tobacco: Every Day Cigarettes Smokeless Tobacco: Never Comments:1-1.5 packs per day Alcohol Use Standard Drinks/Week Comments Not Currently 0 (1 standard drink = 0.6 oz pur e alcohol) Adolescent Education Answer Date Record ed Getting School Help Needed Not on file 12/26 Sex and Gender Information Value Date Recorded Sex Assigned at Not on file Legal Sex Male 3:17 PM CDT Gender Identity Not on file Sexual Orientation Not on file Last Filed Vital Signs Vital Sign Reading Time Taken Comments Blood Pressure 137/98 12/27/2023 4:02 PM CDT Pulse 70 12/27/2023 4:02 PM CDT Temperature 36.6 C (97.9 F) 12/27/2023 4:02 PM CDT Respiratory Rate 16 12/27/2023 4:02 PM CDT Oxygen Saturation 93% 12/27/2023 4:02 PM CDT Inhaled Oxygen Concentration - - Weight 93 kg (205 lb) 12/27/2023 8:18 AM CDT Height 185.4 cm (6' 1) 12/26/2023 3:00 PM CDT Body Mass Index 27.05 12/26/2023 3:00 PM CDT Plan of Treatment Health Maintenance Due Date Last Done Comments ADVANCE CARE PLANNING 1970 ANNUAL REVIEW OF HM ORDERS 1971 CT COLONOGRAPHY 1970 DIABETES SCREENING 1970 FIT 1970 FLEX SIG 1970 LIPID 1971 sDNA (Cologuard) 1970 HEPATITIS B VACCINE (1 of 3 - 19+ 3-dose series) 11/16/1990 YEARLY PREVENTIVE VISIT 10/12/2021 10/12/2020 LUNG CANCER SCREENING 11/16/2021 PNEUMOCOCCAL VACCINE 50+ YEARS (1 of 1 - PCV) 11/16/2021 ZOSTER VACCINE (1 of 2) 11/16/2021 PHQ-2 (once per calendar year) 2024 COVID-19 VACCINE (1 - 2024-2 6 season) 2025 INFLUENZA VACCINE (#1) 2025 DTAP/TDAP/TD VACCINE (2 - Td or Tdap) 10/12/2030 10/12/2020 COLONOSCOPY 09/21/2033 09/21/2023, 06/14/2022 COLORECTAL CANCER SCREENING 09/21/2033 HEPATITIS C SCREENING Completed 10/12/2020 HIV SCREENING Completed 10/12/2020 HPV VACCINE (No Doses Required) Completed MENINGITIS VACCINE Aged Out No longer eligible based on patient's age to complete this topic Medical Devices Implanted Type Area Production Control Technologist Device Identifier Shelf Expiration Date Model / Serial / Lot Disc Lp Prestige 6x16mm [id number] - [id number] Implanted:Qt y: 1 on 12/27/2023 by Oswaldo Velazquez MD at [facility] Total Joint Componen t/Insert N/A: Spine Cervical [employer] [id number] 03/28/2031 [id number] / / [id number] Insurance P [facility] Care Teams Transport Tank Technician Relationship Specialty Start Date End Date Jamin Sheth MD [facility] [address] [place] [address] PCP - General Family Medicine 12/27/23
--- OUTSIDE RECORDS SUMMARY | 2025-05-26 09:36 | XMS_ITS | Clinical Summary ---
Author Organization [facility] Address [address] [place] [address] Care Team Providers Care Analyst Geochemical Prospecting Name Role Phone Pcp, No Primary Care Provider Unavailabl e Allergies Active Allergy Reactions Criticality Noted Date Comments Hydrocodone-Acetaminophen Rash,Nausea Only 10/2010 Vicodin Medications atorvastatin (LIPITOR) 10 mg tablet Take 10 mg by mouth at bedtime. Active omeprazole (PRILOSEC) 20 mg Delayed-Release capsule Take 20 mg by mouth once daily. Active acetaminophen (TYLENOL) 500 mg capsule Take 1 Capsule by mouth every 6 hours if needed. Active chlorthalidone (HYGROTON) 25 mg tablet Take 25 mg by mouth once daily. 12/20/2022 Active meloxicam 15 mg tablet Take 15 mg by mouth once daily. 03/01/2023 Active lisinopriL (PRINIVIL; ZESTRIL) 20 mg tablet Take 20 mg by mouth once daily. Every other day 12/06/2022 Active Active Problems Problem Noted Date Diagnosed Date Diverticulitis 02/14/2022 Tobacco dependence due to cigarettes 02/09/2022 Spermatocele 12/08/2020 Gastroesophageal reflux disease 10/13/2020 Hyperlipidemia 10/13/2020 Primary hypertension 07/10/2020 Low back pain 06/25/2019 S/P hernia surgery Family History Medical History Relation Name Comments Rheum arthritis Brother No Known Problems Father Cancer-breast Mother No Known Problems Sister Relation Name Status Comments Brother Alive Father Alive Mother Alive Sister Alive Social History Tobacco Use Types Packs/Day Years Used Date Smoking Tobacco: Every Day Cigarettes Passive Smoke Exposure: Current Smokeless Tobacco: Never Tobacco Cessation:Ready to Q uit: No; Counseling Given: No Alcohol Use Standard Drinks/Week Comments Not Currently 0 (1 standard drink = 0.6 oz pur e alcohol) PHQ-2 Answer Date Recorded PHQ-2 Score 0 04/19/2019 Social Connections Answer Date Recorded Frequency of Communication with Friends and Fami ly Not on file 11/22/2022 Sex and Gender Information Value Date Recorded Sex Assigned at Not on file Legal Sex Male 7:00 AM SCRAP SORTER Gender Identity Not on file Sexual Orientation Not on file Obstetrics History Last Filed Vital Signs Vital Sign Reading Time Taken Comments Blood Pressure 149/99 09/21/2023 2:45 PM SCRAP SORTER Pulse 72 09/21/2023 2:45 PM SCRAP SORTER Temperature 36.3 C (97.4 F) 09/21/2023 2:13 PM SCRAP SORTER Respiratory Rate 18 09/21/2023 2:45 PM SCRAP SORTER Oxygen Saturation 92% 09/21/2023 2:45 PM SCRAP SORTER Inhaled Oxygen Concentration - - Weight 95 kg (209 lb 8 oz) 09/21/2023 11:[address] Height 185 cm (6' 0.84) 09/12/2023 3:09 PM SCRAP SORTER Body Mass Index 27.77 09/12/2023 3:09 PM SCRAP SORTER Plan of Treatment Health Maintenance Due Date Last Done Comments Tetanus booster 11/16/1982 HIV for age 15-65 11/16/1986 Hepatitis C screening for age 18-79 11/16/1989 Hepatitis B series for 19+ ( 1 of 3 - 19+ 3-dose series) 11/16/1990 Pneumococcal series for age 50+ (1 of 2 - PCV) 11/16/1990 Lipids for age 45-75 11/16/2016 BMI (ht and wt on same day) for age 18+ 04/19/2020 0 04/19/2019 Depression screening for age 12+ 04/19/2020 04/19/20 19 Zoster (shingles) series for age 50+ (1 of 2) 11/16/2021 COVID-19 vaccine series ( - 2023- season) 2025 Influenza Vaccine (#1) 2025 Colonoscopy through age 75 09/21/2033 09/21/2023, RSV vaccine for adults or pr egnancy (1 - 1-dose 75+ series) 11/16/2046 Procedures Procedure Name Priority Date/Time Associated Diagnosis Comments COLONOSCOPY 09/21/2023 1:13 PM SCRAP SORTER from Last 3 Months or Most Recently Relevant to Health Maintenance Results * COLONOSCOPY (09/21/2023 1:13 PM SCRAP SORTER) 09/21/2023 1:13 PM SCRAP SORTER Narrative Transcriptions Leeanna Jay MD - 09/21/2023 2:10 PM CST Patient Name: Oneil Day Procedure Date: 09/21/2023 Gender: Male Date of : 1970 Admit Type: Ambulatory Procedure: Colonoscopy Proceduralist: Leeanna Cason MD Referring MD: Leeanna Cason MD Indications/Pre-Op Diagnosis: High risk colon cancer surveillance:Personal history of colonic polyps, Last colonoscopy: April 2022 Medications: Monitored Anesthesia Care Procedure Description: The procedure, indications, potential complications, (bleeding, perforation, infection, adverse medication reaction, missed lesionsor polyps) and alternatives available were explained to the patient, who appeared to understand and indicated this. Opportunity for questionswas provided and informed consent obtained. The endoscope [id number] was passed through the anus andadvanced to the cecum, identified by appendiceal orifice and ileocecal valve.The colonoscopy was performed without difficulty. The patient toleratedthe procedure well. The quality of the bowel preparation was evaluatedusing the BBPS ([place] Bowel Preparation Scale) with scores of: Right Colon= 2 (minor amount of residual staining, small fragments of stool and/or opaque liquid, but mucosa seen well), Transverse Colon = 2 (minoramount of residual staining, small fragments of stool and/or opaque liquid,but mucosa seen well) and Left Colon = 2 (minor amount of residualstaining, small fragments of stool and/or opaque liquid, but mucosa seen well). The total BBPS score equals 6. Complications: No immediate complications. Estimated Blood Loss & Specimen: Estimated blood loss was minimal. Specimen collected: Yes and sent to Laboratory Findings: The perianal and digital rectal examinations were normal. A 6 mm polyp was found in the cecum. The polyp was sessile. The polyp was removed with a cold snare. Resection and retrieval werecomplete. Two sessile polyps were found in the sigmoid colon. The polyps were 4to 6 mm in size. These polyps were removed with a cold snare. Resectionand retrieval were complete. Multiple diverticula were found in the sigmoid colon. The exam was otherwise without abnormality on direct and retroflexion views. Impressions/Post-Op Diagnosis: - One 6 mm polyp in the cecum, removed with a cold snare. Resectedand retrieved. - Two 4 to 6 mm polyps in the sigmoid colon, removed with a coldsnare. Resected and retrieved. - Diverticulosis in the sigmoid colon. - The examination was otherwise normal on direct and retroflexionviews. Recommendation: - Await pathology results. - Dr. Cason's office will call you with results and follow up instructions Moderate Sedation: see anesthesia report Leeanna Cason MD 09/21/2023 2:10:31 PM This report has been signed electronically. Note Initiated On: 09/21/2023 1:13 PM Leeanna Deshpande MD PROCEDURE ORD Fin al Result from Last 3 Months or Most Recently Relevant to Health Maintenance Insurance [facility] Member Subscriber Plan / Payer (Ef fective 2017-Present) Name:Oneil Day Relation to Subscriber:Employee Name:HORACIO JOHNSON Date of :1999 (Home) Address: [address] [place] [address] [place] [address] Payer ID:Not on file Group ID:Not on file Type:Not on file Address: [facility] CLAIM STRATEGIES [address] [place] [address] [place] [address] [facility] [employer] WORKERS COMP on file Advance Directives * Full Code (Latest Code Status on File) Date Activated Date Inactivated Comments 09/21/2023 11:24 AM 09/21/2023 5:01 PM Question Answer Comments Code Status Discussion: Not Discussed * Full Code Date Activated Date Inactivated Comments 04/22/2022 7:15 AM 04/22/2022 2:35 PM Question Answer Comments Code Status Discussion: Reviewed Preferences * Full Code Date Activated Date Inactivated Comments 04/13/2022 6:42 AM 04/14/2022 2:28 AM Question Answer Comments Code Status Discussion: Not Discussed * Full Code Date Activated Date Inactivated Comments 02/14/2022 1:59 PM 02/16/2022 3:12 PM Question Answer Comments Code Status Discussion: Reviewed Preferences * Full Code Date Activated Date Inactivated Comments 06/24/2013 6:10 AM 06/24/2013 3:55 PM Care Teams Analyst Geochemical Prospecting Relationship Specialty Start Date End Date Pcp, No . PCP - General 09/06/23
[2025-05-26 09:47] LABS: Albumin* 4.2 g/dL (3.3-5.0); Chloride* 102 mmol/L (96-114); Potassium* 3.7 mmol/L (3.6-5.1); Sodium* 135 mmol/L (135-149)
[2025-05-26 09:49] LABS: Blood Urea Nitrogen* 16 mg/dL (7-30); Creatinine* 0.7 mg/dL (0.5-1.5); Est. Creatinine Clearance* 141.89; Estimated Glomerular Filt Rate 110 ml/min
[2025-05-26 09:50] LABS: Alanine Aminotransferase* 22 U/L (4-50); Alkaline Phosphatase* 97 U/L (40-150); Anion Gap 7 mEq/L (7-15); Aspartate Amino Transferase* 23 U/L (12-35); Bilirubin Total* 0.3 mg/dL (0.1-1.5); Calcium* 9.1 mg/dL (8.4-10.6); Carbon Dioxide* 26 mmol/L (20-32); Glucose* 161 mg/dL (60-115); Total Protein* 7.8 g/dL (6.0-8.3)
[2025-05-26 09:51] LABS: D Dimer Quantitative* 0.50 ug/ml (0.00-0.50)
[2025-05-26 10:00] VITALS: BP 137/92; PULSE 86; RESP 16; O2SAT 95
--- NOTE | 2025-05-26 10:16 | ED.GENADULT ---
HPI - General Adult General Date Seen: 05/26/25 Chief complaint: Chest Pain Stated complaint: Chest pain, difficulty breathing, dizzy, lighthead Time Seen by Provider: 05/26/25 09:20 History of Present Illness HPI narrative: Patient is a 54-year-old here for evaluation of chest pain which he has noticed for the past couple of days. It is in a localized area in his left chest. Sometimes is pleuritic. He has felt a little bit short of breath and sometimes has tingling in his left arm. He has a physical job and has not noticed any worsening of symptoms while at work. He has no prior history of heart disease, DVT or PE. He does smoke although he says he is trying to quit. Has not had fevers, cough, unusual leg swelling or pain, recent travel or immobility. Related Data Previous Rx's ?Medication ?Instructions ?Recorded lisinopril 20 1 tab PO QDAY #30 tabs 05/12/25 mg-hydrochlorothiazide 25 mg tablet Allergies Allergy/AdvReac Type Severity Reaction Status Date / Time acetaminophen (From Vicodin) AdvReac Mild Rash Verified 05/26/25 09:03 hydrocodone (From Vicodin) AdvReac Mild Rash Verified 05/26/25 09:03 Review of Systems Status of ROS: Reports: 6 or more systems reviewed and unremarkable except as noted in History and below [facility] Medical History History of basal cell carcinoma (BCC) ?Z85.828 - Personal history of other malignant neoplasm of skin (ICD-10) Diverticulosis ?K57.90 - Diverticulosis of intestine, part unspecified, without perforation or abscess without bleeding (ICD-10) Raynaud's disease ?I73.00 - Raynaud's syndrome without gangrene (ICD-10) Mild obstructive sleep apnea ?G47.33 - Obstructive sleep apnea (adult) (pediatric) (ICD-10) History of adenomatous polyp of colon ?Z86.0101 - Personal history of adenomatous and serrated colon polyps (ICD-10) Tobacco abuse ?Z72.0 - Tobacco use (ICD-10) Cervical radiculopathy ?M54.12 - Radiculopathy, cervical region (ICD-10) GERD (gastroesophageal reflux disease) ?K21.9 - Gastro-esophageal reflux disease without esophagitis (ICD-10) Restless leg syndrome ?G25.81 - Restless legs syndrome (ICD-10) Primary hypertension ?I10 - Essential (primary) hypertension (ICD-10) Mixed hyperlipidemia ?E78.2 - Mixed hyperlipidemia (ICD-10) Surgical History History of hernia repair ?Z98.890 - Other specified postprocedural states (ICD-10) ?Z87.19 - Personal history of other diseases of the digestive system (ICD-10) History of shoulder surgery ?Z98.890 - Other specified postprocedural states (ICD-10) History of lumbar discectomy (2019) ?Z98.890 - Other specified postprocedural states (ICD-10) History of left knee surgery ?Z98.890 - Other specified postprocedural states (ICD-10) Family History Mother Breast cancer High blood pressure Brother Rheumatoid arthritis Father High blood pressure Maternal Grandmother Breast cancer Sister High blood pressure Uncle Diabetes Testicular cancer Social History What is your current living situation?: I presently have a place to live Problems where you live: no known problems In the past 12 months, utilities in danger of being shut off: no In past 12 months, lack of transportation kept you from medical appts, meetings, work, or getting things needed for daily living: no In the past 12 mos, have been you worried that your food would run out before you had money to buy more?: never true In the past 12 mos, the food you bought just didn't last and you didn't have money to buy more?: never true Smoking Status: Current every day smoker What tobacco products do you use: cigarettes Smoking packs per day: 1 Smoking cigarettes per day: 20.0 Do you use any of these nicotine containing products: None How often do you have a drink containing alcohol: never How often do you have six or more drinks on one occasion: Never AUDIT-C Alcohol total score: 0 Non-prescribed substance use: marijuana (any form) How often does anyone, including family, friends and others, physically hurt you: never How often does anyone, including family, friends and others, insult or talk down to you: never How often does anyone, including family, friends and others, threaten you with harm: never How often does anyone, including family, friends and others, scream or curse at you: never service: No Exam Narrative: Exam Narrative: Vital signs reviewed In general, alert, nontoxic mid age male, breathing easily. Head: Normocephalic, atraumatic. Eyes: Sclera clear. Pupils equal and reactive. ENT: Mucous membranes moist. Neck: Supple without adenopathy. Heart: Regular rate and rhythm without murmur. Chest wall is nontender. Lungs: Clear. No increased work of breathing, crackles or wheezes. Abdomen: Soft, nontender to palpation. Extremities: Well perfused, pulses intact. No significant edema. Neurologic: Alert, conversant. Speech fluent, face symmetric. Moves all extremities equally. Skin: Warm, dry well perfused. Affect: Normal. Const: Vital Signs, click to edit/add: Vital Signs - 24 hr 05/26/25 08:57 05/26/25 09:30 05/26/25 09:30 Temperature 98.1 F Pulse Rate [Pulse Oximeter] 94 87 Respiratory Rate 18 20 Blood Pressure [Ri ght Upper Arm] 137/93 H 148/103 H Pulse Oximetry 95 94 91 Oxygen Delivery Me thod Room Air Room Air Course Course ED Course: Patient had an EKG on arrival. By my review this shows a sinus rhythm, ventricular rate of 89. Q-waves are seen in AVF and 3, likely a small Q-wave in lead 2 as well but there are no acute ST segment changes, no reciprocal changes, T-waves are unremarkable. I did give him an aspirin on arrival, routine labs ordered, chest x-ray by my review did not show infiltrate, significant congestive heart failure, pleural effusion or pneumothorax. Radiology report reviewed, they note bibasilar atelectasis otherwise negative. Patient's labs here are unremarkable, his troponin is 0, D-dimer is 0.5. White blood cell count and hemoglobin are normal LFTs are normal. Abdominal exam is benign, I do not suspect pancreatitis, gallbladder disease, gastroesophageal reflux, gastritis or other GI source for his pain. Pain is localized in a small area in the left chest and is somewhat pleuritic. Negative D-dimer I think adequately rules out pulmonary embolism, with 2 days of symptoms I think a single troponin adequately rules out acute coronary syndrome. Given his age and smoking status it may be reasonable to have him follow-up with a stress test, but I think symptoms most likely at this point are musculoskeletal. Discussed stress testing with him, he would like to follow-up with Dr. Sheth to discuss this further. I think that is reasonable given the circumstances. His job involves a lot of upper body work, so I have written a note to be off of work for couple of days in case this is muscular. Reasons to return discussed. Vital Signs Vital signs: Initial Vital Signs Temperature 98.1 F 05/26/25 08:57 Temperature Source Temporal Artery Scan 05/26/25 08:57 Pulse Rate 94 05/26/25 08:57 Respiratory Rate 18 05/26/25 08:57 Blood Pressure 137/93 H 05/26/25 08:57 Blood Pressure Mean 107 H 05/26/25 08:57 Blood Pressure Position Sitting 05/26/25 08:57 Pulse Oximetry 95 05/26/25 08:57 Oxygen Delivery Method Room Air 05/26/25 08:57 Vital Signs Temperature 98.1 F 05/26/25 08:57 Pulse Rate 94 05/26/25 08:57 Respiratory Rate 18 05/26/25 08:57 Blood Pressure 137/93 H 05/26/25 08:57 Pulse Oximetry 95 05/26/25 08:57 Oxygen Delivery Method Room Air 05/26/25 08:57 Temperature 98.1 F 05/26/25 08:57 Pulse Rate 87 05/26/25 09:30 Respiratory Rate 20 05/26/25 09:30 Blood Pressure 148/103 H 05/26/25 09:30 Pulse Oximetry 91 05/26/25 09:30 Oxygen Delivery Method Room Air 05/26/25 09:30 Medications Administered Medications: Discontinued Medications Generic Name Dose Route Start Last Admin Trade Name Freq PRN Reason Stop Dose Admin Aspirin 324 mg 05/26/25 09:15 05/26/25 09:28 Aspirin 81 Mg Tab.Chew PO 05/26/25 09:16 324 mg ONCE ONE Administration Ketorolac Tromethamine 15 mg 05/26/25 10:29 05/26/25 10:40 Ketorolac 15 Mg/Ml Inj IVP 05/26/25 10:30 15 mg ONCE ONE Administration Medical Decision Making Lab Data Lab results reviewed: Yes I reviewed the patient's lab results Labs: Lab Results 05/26/25 05/26/25 Range/Units 09:16 09:20 WBC 10.61 (4.50-11.00) K/uL RBC 5.76 (4.30-5.90) m/uL Hgb 16.5 (13.5-17.5) gm/dL Hct 51.1 (37.0-53.0) % MCV 89 (80-100) fL MCH 29 (26-34) pg MCHC 32 (32-36) gm/dL RDW Coeff of Hayder 13.2 (11.5-15.5) % Plt Count 273 (140-440) K/uL Neut % (Auto) 71.2 (42.0-72.0) % Lymph % (Auto) 21.7 (20-44) % Mcleod % (Auto) 4.8 (0.0-11.0) % Eos % (Auto) 1.7 (0.0-7.0) % Baso % (Auto) 0.3 (0.0-3.0) % Neut # (Auto) 7.56 H (1.7-7.0) K/uL Lymph # (Auto) 2.30 (0.90-2.90) K/uL Mcleod # (Auto) 0.50 (0.00-0.90) K/UL Eos # (Auto) 0.18 (0.00-0.50) K/uL Baso # (Auto) 0.03 (0.00-0.30) K/uL Abs Immat Gran (auto) 0.03 (0.00-0.30) K/uL Imm/Tot Granulo (auto) 0.3 % D-Dimer Quant (PE/DVT) 0.50 (0.00-0.50) ug/ml Sodium 135 (135-149) mmol/L Potassium 3.7 (3.6-5.1) mmol/L Chloride 102 (96-114) mmol/L Carbon Dioxide 26 (20-32) mmol/L Anion Gap 7 (7-15) mEq/L BUN 16 (7-30) mg/dL Creatinine 0.7 (0.5-1.5) mg/dL Estimated Creat Clear 141.89 Estimated GFR 110 ml/min Glucose 161 H (60-115) mg/dL Calcium 9.1 (8.4-10.6) mg/dL Total Bilirubin 0.3 (0.1-1.5) mg/dL AST 23 (12-35) U/L ALT 22 (4-50) U/L Alkaline Phosphatase 97 (40-150) U/L Total Protein 7.8 (6.0-8.3) g/dL Albumin 4.2 (3.3-5.0) g/dL POC Troponin I 0.00 L (0.01-0.04) ng/ml Imaging Data Chest x-ray: Attestation: I have reviewed the pertinent imaging results. Radiologist's impression: [place] [address] Diagnostic Imaging Report Patient: Oneil Day MR#: [id number] : 1970 Acct:[id number] Loc: ED Service Date: 05/26/[address]: Ordering Physician: Joi Molina M.D. Date of Service: 05/26/25 Procedure(s): XR chest 1V portable Accession Number(s): [id number] cc: Joi Molina M.D.; Jamin Sheth M.D.~ For Patients: As a result of the Cures Act, medical imaging exams and procedure reports are released immediately into your electronic medical record. You may view this report before your referring provider. If you have questions, please contact your health care provider. INDICATION: Dyspnea, chest pain TECHNIQUE: One view chest COMPARISON: None. FINDINGS: Monitoring leads overlie the chest. Shallow lung volumes. Streaky opacities at the right lung base. Small area left lower lung subsegmental atelectasis. Normal cardiomediastinal silhouette. IMPRESSION: Bibasilar atelectasis. Dictated by Tee Rodríguez MD @ 05/26/2025 9:54:41 AM Discharge Plan Discharge Clinical Impression: Chest pain Patient Disposition: Home, Self-Care Condition: Improved Instructions: Chest Pain (DC) Additional Instructions: As discussed, your test today are all reassuring and rule out serious causes such as heart attack, blood clot, collapsed lung etcetera. Due to your risk factor profile, it may still be reasonable for you to do a stress test. Please follow-up with Dr. Sheth to discuss further. If you are feeling worse at any point, have severe uncontrolled symptoms, new symptoms such as fever, fainting, etcetera, return to the emergency department at any time. Off work for the next couple of days. Prescriptions: No Action lisinopril-hydrochlorothiazide 20-25 mg tablet 1 tab PO QDAY Qty: 30 1RF Follow Up/Referrals: Jamin Sheth MD [Primary Care Provider, Family Practice] Stand Alone Forms: [employer]om[employer] Info Instructions
[2025-05-26 10:30] VITALS: BP 139/99; PULSE 76; RESP 16; O2SAT 91
== END 2025-05-26 10:55 | disposition home or self-care (01) ==
PROVIDERS: Emergency Provider Emergency Medicine; PCP Family Medicine
DX: R07.9 Chest pain, unspecified (principal); R06.00 Dyspnea, unspecified
CPT/HCPCS: 36415; 71045; 80053; 84484; 85025; 85379; 93005; 94761; 96374; 99284; 99285; A9270; J1885

== ENCOUNTER 2025-06-13 08:39 | Outpatient (CLI) | payer OTHER, SELFPAY ==
--- NOTE | 2025-06-13 10:30 | P.ANES_ITS ---
Anesthesia Charges Start Date/Time Anesthesia Start Date: 06/13/25 Anesthesia Start Time: 09:45 Stop Date/Time Anesthesia Stop Date: 06/13/25 Anesthesia Stop Time: 10:28 Coding CPT Codes CPT Codes: ANES LWR INTST NDSC NOS - 28377 ([id number]) P3 - PATIENT W/SEVERE SYS DISEASE, QK - OIL AGENT 2-4 CNCRNT ANES PROC, QX - COTTONSEED MEAT PRESSER SVC W/ MD MED DIRECTION
--- NOTE | 2025-06-13 10:30 | W.ANESCHARGE ---
Anesthesia Charges Start Date/Time Anesthesia Start Date: 06/13/25 Anesthesia Start Time: 09:45 Stop Date/Time Anesthesia Stop Date: 06/13/25 Anesthesia Stop Time: 10:28 Coding CPT Codes CPT Codes: ANES LWR INTST NDSC NOS - 77852 ([id number]) P3 - PATIENT W/SEVERE SYS DISEASE, QK - AUTO PARKER 2-4 CNCRNT ANES PROC, QX - ORDNANCE EQUIPMENT WORKER SVC W/ MD MED DIRECTION
--- NOTE | 2025-06-13 10:35 | P.ANES_ITS ---
Anesthesia Charges Start Date/Time Anesthesia Start Date: 06/13/25 Anesthesia Start Time: 09:45 Stop Date/Time Anesthesia Stop Date: 06/13/25 Anesthesia Stop Time: 10:28 Coding CPT Codes CPT Codes: ANES LWR INTST NDSC NOS - 24207 ([id number]) QK - BURNING MACHINE OPERATOR 2-4 CNCRNT ANES PROC, QX - FIREPROOF DOOR ASSEMBLER SVC W/ MED DIRECTION, P3 - PATIENT W/SEVERE SYS DISEASE
--- NOTE | 2025-06-13 10:35 | W.ANESCHARGE ---
Anesthesia Charges Start Date/Time Anesthesia Start Date: 06/13/25 Anesthesia Start Time: 09:45 Stop Date/Time Anesthesia Stop Date: 06/13/25 Anesthesia Stop Time: 10:28 Coding CPT Codes CPT Codes: ANES LWR INTST NDSC NOS - 87653 ([id number]) QK - LYMPHEDEMA THERAPIST 2-4 CNCRNT ANES PROC, QX - HAMPER MAKER MACHINE SVC W/ MED DIRECTION, P3 - PATIENT W/SEVERE SYS DISEASE
== END 2025-06-13 08:40 | disposition home or self-care (01) ==
LOC: OP CLINIC 08:40
PROVIDERS: PCP Family Medicine; Visit Provider Surgery
DX: Z12.11 Encounter for screening for malignant neoplasm of colon (principal); Z86.0100 Personal history of colon polyps, unspecified; K57.30 Diverticulosis of large intestine without perforation or abscess without bleeding; D12.7 Benign neoplasm of rectosigmoid junction; D12.1 Benign neoplasm of appendix; K63.5 Polyp of colon; K52.9 Noninfective gastroenteritis and colitis, unspecified
CPT/HCPCS: 00811; 00812; 45380; 45381; 45385; 88305; J2704

== ENCOUNTER 2025-06-21 07:02 | Inpatient (IN) | payer OTHER, SELFPAY ==
[2025-06-21] VITALS (9 sets, daily range): BP systolic 123–138; BP diastolic 76–93; PULSE 74–107; RESP 16–18; TEMP 36.6–37.1; O2SAT 90–92; BMI 39.3; BMI 26.5; BMI 26.6
--- OUTSIDE RECORDS SUMMARY | 2025-06-21 07:05 | XMS_ITS | Clinical Summary ---
Author Organization [facility] Address [address] [place] [address] Care Team Providers Care Protective Services Case Worker Name Role Phone Pcp, No Primary Care [...] on file Legal Sex Male 7:00 AM LAP HAND TOOL Gender Identity Not on file Sexual Orientation Not on file Obstetrics History Last Filed Vital Signs Vital Sign Reading Time Taken Comments Blood Pressure 149/99 09/21/2023 2:45 PM LAP HAND TOOL Pulse 72 09/21/2023 2:45 PM LAP HAND TOOL Temperature 36.3 C (97.4 F) 09/21/2023 2:13 PM LAP HAND TOOL Respiratory Rate 18 09/21/2023 2:45 PM LAP HAND TOOL Oxygen Saturation 92% 09/21/2023 2:45 PM LAP HAND TOOL Inhaled Oxygen Concentration - - Weight 95 kg (209 lb 8 oz) 09/21/2023 11:[address] Height 185 cm (6' 0.84) 09/12/2023 3:09 PM LAP HAND TOOL Body Mass Index 27.77 09/12/2023 3:09 PM LAP HAND TOOL Plan of Treatment Health Maintenance Due Date [...] for age 50+ (1 of 2) 11/16/2021 Influenza Vaccine (#1) 2025 Colonoscopy through age 75 09/21/2033 09/21/2023, RSV vaccine for adults or pr egnancy (1 - 1-dose 75+ series) 11/16/2046 Procedures Procedure Name Priority Date/Time Associated Diagnosis Comments COLONOSCOPY 09/21/2023 1:13 PM LAP HAND TOOL from Last 3 Months or Most Recently Relevant to Health Maintenance Results * COLONOSCOPY (09/21/2023 1:13 PM LAP HAND TOOL) 09/21/2023 1:13 PM LAP HAND TOOL Narrative Transcriptions Leeanna Jay MD - 09/21/2023 [...] provided and informed consent obtained. The endoscope [id number] was passed through the anus andadvanced to the cecum, identified by appendiceal orifice and ileocecal valve.The colonoscopy was performed without difficulty. The patient toleratedthe procedure well. The quality of the bowel preparation was evaluatedusing the BBPS (Sarita Bowel Preparation Scale) with scores of: Right [...] Most Recently Relevant to Health Maintenance Insurance [facility] BILL PROCESSING [facility] WORKERS COMP on file Advance Directives * [...] 6:10 AM 06/24/2013 3:55 PM Care Teams Protective Services Case Worker Relationship Specialty Start Date End Date Pcp, No . PCP - General 09/06/23
--- OUTSIDE RECORDS SUMMARY | 2025-06-21 07:05 | XMS_ITS | Clinical Summary ---
Author Organization [facility] Address [address] [place] [address] Care Team Providers Care Press Operator Carbon Blocks Name Role Phone Angela Fay M.D. Primary Care Provider [phone] Source Comments Patient records contain information from all sites at [facility]. For routine questions regarding patient records, call [phone] during business hours, M-F 8:00 AM - 5:00 PM Central Time. Record requests for emergency care only can be directed to [phone] at any time.[facility] Allergies Active Allergy Reactions Criticality Noted Date [...] your living situation today? I have a [facility] place to live 03/01/2023 Education Answer Date Recorded What is the highest level of school you have completed or the highest degree you have received? 11th grade 10/12/2020 Sex and Gender Information Value Date Recorded Sex Assigned at Not on file Legal Sex Male 6:09 PM CHILD STUDY TEAM DIRECTOR Gender Identity Not on file Sexual Orientation Not on file Last Filed Vital Signs Vital Sign Reading Time Taken Comments Blood Pressure 109/73 10/17/2023 1:12 PM CHILD STUDY TEAM DIRECTOR Pulse 79 10/17/2023 1:12 PM CHILD STUDY TEAM DIRECTOR Temperature 36.3 C (97.4 F) 10/03/2023 9:58 AM CHILD STUDY TEAM DIRECTOR Respiratory Rate 23 06/14/2022 3:40 PM CDT Oxygen Saturation 95% 12/19/2022 10: 04 AM CDT Inhaled Oxygen Concentration - - Weight 96.1 kg (211 lb 13.8 oz) 10/03/2023 9:58 AM CHILD STUDY TEAM DIRECTOR Height 185 cm (6' 0.84) 09/01/2023 7:48 AM CHILD STUDY TEAM DIRECTOR Body Mass Index 28.08 09/01/2023 7:48 AM CHILD STUDY TEAM DIRECTOR Plan of Treatment Health Maintenance Due Date [...] this topic Medical Devices Implanted Type Area Contact Center Manager Device Identifier Shelf Expiration Date Model / Serial / Lot [facility] Rs 235 - [id number] Implanted:Qty : 2 on 06/14/2022 by Pablo Fritz M.D. at [facility] Hardware e.g. pins/screws/ rods [employer] [id number] 12/14/2024 [id number] / / [id number] Procedures Procedure Name Priority Date/Time Associated Diagnosis Comments BASIC METABOLIC PANEL, S/P Routine 10/31/2023 9:59 AM CDT Monitoring For Therapeutic Drug Therapy LIPID PANEL, S Routine 12/06/2022 11:56 AM CDT Screening Lipid COLONOSCOPY Routine 06/14/2022 1:48 PM CDT Polyp Colon Adenomatous HCV AB SCRN W/REFLEX TO HCV PCR, S Routine 10/12/2020 9:21 AM CHILD STUDY TEAM DIRECTOR Health Maintenance Examination Adult HIV-1/-2 AG AND AB SCREEN, PLASMA Routine 10/12/2020 9:21 AM CHILD STUDY TEAM DIRECTOR Health Maintenance Examination Adult from Last 3 [...] Fay M.D. LAB BLOOD ADD-ON Final Result [facility] [address] [place] [address], [facility] [place] [address] [place] [address] * (ABNORMAL) Lipid Panel (12/06/2022 11:56 AM [...] APRNNBibi LAB BLOOD ADD-ON Fi nal Result [facility] [address] [place] [address], [facility] [place] [address] [place] [address] * Colonoscopy (06/14/2022 1:48 PM CDT) Anatomical [...] retrieved. Clips (MR conditional) were placed. Clip employment law specialist: [employer]. - One 8 mm polyp in the [...] preparation and pertinent family history. For [facility] providers, detailed recommendations are available as an AskMayoExpert Care Process Model: <[email or web address] There may be some circumstances, specifically [...] clips were successfully placed (MR conditional). Clip employment law specialist: [employer]. There was no bleeding during, or at [...] bowel preparation was evaluated using the BBPS ([place] Bowel Preparation Scale) with scores of: Right [...] and Ab Screen, Plasma (10/12/2020 9:21 AM CHILD STUDY TEAM DIRECTOR) HIV Ag/Ab Screen, P Negative Negative 10/13/2020 10:38 AM CHILD STUDY TEAM DIRECTOR [facility] Comment: Negative result does not rule out HIV infection. If exposure to HIV infection occurred <14 days ago, contact the laboratory to request addition of HIV-1 RNA detection / quantification test. HIV-1 p24 Ag Screen, P Negative Negative 10/13/2020 10:38 AM CHILD STUDY TEAM DIRECTOR [facility] Comment: Negative result does not rule out HIV infection. If exposure to HIV infection occurred <14 days ago, contact the laboratory to request addition of HIV-1 RNA detection / quantification test. HIV-1 Ab Screen, P Negative Negative 2020 10:38 AM CHILD STUDY TEAM DIRECTOR [facility] Comment: Negative result does not rule out HIV infection. If exposure to HIV infection occurred <14 days ago, contact the laboratory to request addition of HIV-1 RNA detection / quantification test. HIV-2 Ab Screen, P Negative Negative 2020 10:38 AM CHILD STUDY TEAM DIRECTOR [facility] Comment: Negative result does not rule out HIV infection. If exposure to HIV infection occurred <14 days ago, contact the laboratory to request addition of HIV-1 RNA detection / quantification test. Blood (Blood, Venous) 10/12/2020 9:21 AM CHILD STUDY TEAM DIRECTOR 10/12/2020 6:54 PM CHILD STUDY TEAM DIRECTOR Paxton SchusterC., P.A. LAB MICROBIOLOGY - BLOOD ORDERABLES Final Result [facility] [address] [place] [address], [facility] [place] [address] [place] [address] * HCV Ab Scrn w/Reflex to HCV PCR, Serum (10/12/2020 9:21 AM CHILD STUDY TEAM DIRECTOR) HCV Ab Screen, S Negative Negative 10/13/2020 8:24 AM CHILD STUDY TEAM DIRECTOR [facility] Comment:Evxfcc-xt-poerly rat io is <1.00. Blood (Blood, Venous) 10/12/2020 9:21 AM CHILD STUDY TEAM DIRECTOR 10/13/2020 7:22 AM CHILD STUDY TEAM DIRECTOR Paxton SchusterC., P.A. LAB MICROBIOLOGY - BLOOD ORDERABLES Final Result [facility] [address] [place] [address] [facility] Dept. of Laboratory Medicine and Pathology [address] [place] [id number] from Last 3 Months or Most Recently Relevant to Health Maintenance Insurance [facility] [id number] [employer] Advance Directives For more information, please contact: [phone] * Full Code (Latest Code Status on File) Date Activated Date Inactivated Comments 08/22/2019 4:08 PM 08/23/2019 12:07 PM Question Answer Comments Full Code: Not Discussed Due to: Patient not available * Full Code Date Activated Date Inactivated Comments 08/22/2019 11:20 AM 08/22/2019 4:08 PM Question Answer Comments Full Code: Not Discussed Due to: Patient not available Care Teams Press Operator Carbon Blocks Relationship Specialty Start Date End Date Angela Fay M.D. [address] [place] [address] PCP - General 09/01/22
--- OUTSIDE RECORDS SUMMARY | 2025-06-21 07:06 | XMS_ITS | Clinical Summary ---
Author Organization [facility] Address [address] [place] [address] Care Team Providers Care Alumnae Secretary Name Role Phone Jamin Sheth MD Primary [...] this topic Medical Devices Implanted Type Area Social Studies Department Chair Device Identifier Shelf Expiration Date Model / Serial / Lot Disc Lp Prestige 6x16mm [id number] - [id number] Implanted:Qt y: 1 on 12/27/2023 by Oswaldo Velazquez MD at [facility] Total Joint Componen t/Insert N/A: Spine Cervical [employer] [id number] 03/28/2031 [id number] / / [id number] Insurance P [facility] Care Teams Alumnae Secretary Relationship Specialty Start Date End Date Jamin Sheth MD [facility] [address] [place] [address] PCP - General Family Medicine 12/27/23
--- NOTE | 2025-06-21 07:29 | ED_ITS ---
HPI - Abdominal Pain General Time Seen by Provider: 07:29 Date Seen: 06/21/25 Chief Complaint: Abdominal Pain Stated Complaint: stomach pain Time Seen by Provider: 06/21/25 07:29 Source: patient, family, RN notes reviewed and old records reviewed Mode of arrival: ambulatory Limitations: no limitations History of Present Illness HPI narrative: Oneil is a very pleasant 54-year-old male with history of colonoscopy on June 13 who comes to the emergency room with complaints of lower abdominal pain. Patient notes a past history of constipation as well as diverticulosis and diverticulitis. He does not know of any complications from the colonoscopy on June 13. Following that he was really unable to have a bowel movement and started experiencing lower abdominal pain on MondayJune 16. The pain has gradually increased over this past week and now is to the point where it is causing him tears. It seems to be coming in waves. He did take a stool softener earlier in the week and had a bowel movement but notes no relief in pain. He has noticed that there has been blood in his stool that was not present prior to the colonoscopy. This patient denies fever chills chest pain or vomiting. Related Data Home Medications ?Medication ?Instructions ?Recorded ?Confirmed bupropion HCl 150 mg tablet,12 hr 150 mg PO DAILY 04/0706/21/25 sustained-release (Wellbutrin SR) docusate sodium 250 mg capsule 250 mg PO DAILY 5 06/21/25 (DSS) Previous Rx's ?Medication ?Instructions ?Recorded lisinopril 20 1 tab PO QDAY #30 tabs 05/12 mg-hydrochlorothiazide 25 mg tablet Allergies Allergy/AdvReac Type Severity Reaction Status Date / Time acetaminophen (From Vicodin) AdvReac Mild Rash Verified 06/21/25 08:02 hydrocodone (From Vicodin) AdvReac Mild Rash Verified 06/21/25 08:02 Review of Systems Status of ROS Reports: 10 or more systems reviewed and unremarkable except as noted in History and below Const Denies: fever, chills or change in weight Eyes Denies: change in vision ENMT Denies: throat pain or difficulty swallowing Cardio Denies: chest pain Resp Denies: cough GI Reports: abdominal pain and constipation (History of); Denies: nausea, vomiting, diarrhea or difficulty swallowing Denies: painful urination Musculo Denies: back pain PFSH [facility] Medical History (Updated 06/21/25 @ 18:22 by Rosie Domínguez MD) History of basal cell carcinoma (BCC) ?Z85.828 - Personal history of other malignant neoplasm of skin (ICD-10) Diverticulosis ?K57.90 - Diverticulosis of intestine, part unspecified, without perforation or abscess without bleeding (ICD-10) Raynaud's disease ?I73.00 - Raynaud's syndrome without gangrene (ICD-10) Mild obstructive sleep apnea ?G47.33 - Obstructive sleep apnea (adult) (pediatric) (ICD-10) History of adenomatous polyp of colon ?Z86.0101 - Personal history of adenomatous and serrated colon polyps (ICD- 10) Tobacco abuse ?Z72.0 - Tobacco use (ICD-10) Cervical radiculopathy ?M54.12 - Radiculopathy, cervical region (ICD-10) GERD (gastroesophageal reflux disease) ?K21.9 - Gastro-esophageal reflux disease without esophagitis (ICD-10) Restless leg syndrome ?G25.81 - Restless legs syndrome (ICD-10) Primary hypertension ?I10 - Essential (primary) hypertension (ICD-10) Mixed hyperlipidemia ?E78.2 - Mixed hyperlipidemia (ICD-10) Surgical History (Updated 06/21/25 @ 12:58 by Andrea Terry MD) H/O cervical spine surgery ?Z98.890 - Other specified postprocedural states (ICD-10) History of hernia repair ?Z98.890 - Other specified postprocedural states (ICD-10) ?Z87.19 - Personal history of other diseases of the digestive system (ICD-10) History of shoulder surgery ?Z98.890 - Other specified postprocedural states (ICD-10) History of lumbar discectomy (2019) ?Z98.890 - Other specified postprocedural states (ICD-10) History of left knee surgery ?Z98.890 - Other specified postprocedural states (ICD-10) Family History (Updated 06/21/25 @ 12:52 by Andrea Terry MD) Mother Breast cancer High blood pressure Brother Rheumatoid arthritis Father High blood pressure Maternal Grandmother Breast cancer Sister High blood pressure Breast cancer Uncle Diabetes Testicular cancer Social History (Updated 06/21/25 @ 12:54 by Andrea Terry MD) Narrative: He lives in [place] with his fiancee, Betty Thomas. She is healthcare power of family law attorney. 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 He reports he does not have health insurance and has concerns about the costs of his healthcare. Code status is full. Previously smoked up to 2 packs of cigarettes per day. Has now cut down to about a half pack a cigarettes per day. He does not drink alcohol. He does smoke marijuana about 2 or 3 times per day What is your current living situation?: I presently have a place to live Problems where you live: no known problems In the past 12 months, utilities in danger of being shut off: no In past 12 months, lack of transportation kept you from medical appts, meetings, work, or getting things needed for daily living: no In the past 12 mos, have been you worried that your food would run out before you had money to buy more?: never true In the past 12 mos, the food you bought just didn't last and you didn't have money to buy more?: never true Highest level of school completed/degree received: 11th grade Smoking Status: Current every day smoker What tobacco products do you use: cigarettes Smoking packs per day: 1 Smoking cigarettes per day: 20.0 Do you use any of these nicotine containing products: None How often do you have a drink containing alcohol: never How often do you have six or more drinks on one occasion: Never AUDIT-C Alcohol total score: 0 Non-prescribed substance use: marijuana (any form) Caffeine: Yes How often does anyone, including family, friends and others, physically hurt you : never How often does anyone, including family, friends and others, insult or talk down to you: never How often does anyone, including family, friends and others, threaten you with harm: never How often does anyone, including family, friends and others, scream or curse at you: never Gender Identity: male service: No Exam Narrative: Exam Narrative: Alert and oriented. He is accompanied by his sister. The ears eyes nose clear. Mucous membranes moist. Heart with regular rate and rhythm and lungs are clear bilaterally. Abdomen is is soft but he does have tenderness noted and the left aspect of his abdomen and suprapubically. In fact this causes him to have significant cramping and even tears in his eyes. Lower extremities without edema. Multiple tattoos noted. Const: Vital Signs, click to edit/add: Vital Signs - 24 hr 06/21/25 07:08 Temperature 98.7 F Pulse Rate [Pulse Oximeter] 107 H Respiratory Rate 16 Blood Pressure [Ri ght Upper Arm] 138/86 Pulse Oximetry 92 Oxygen Delivery Me thod Room Air Documenting provider has reviewed patient's vital signs: yes Course Course ED Course: Differential diagnosis includes but is not limited to constipation, bowel perforation, bowel obstruction, diverticulitis. At this time will place IV use Toradol 15 mg Zofran 4 mg for discomfort. Patient requires CT of the abdomen and pelvis with contrast in order to rule out bowel trauma from the colonoscopy. Will also check CBC, comprehensive, lactate, CRP. Patient is in agreement. Reevaluation(s) Reevaluation #1: Patient noted some improvement with Toradol. Will give him 2 mg of IV morphine. White count elevated at 12.57 with CRP of 5.9. Awaiting CT results. Consultations Consultation #1: At the pleasure of speaking to our surgical instrument technician Dr. Connors. She was able to access notes from 06/13 which showed multiple biopsies as well as polyp removal. Unfortunately CT does show a sigmoid abscess. Must consider micro per even though there is no free air noted given recent instrumentation of the colon along with biopsies. Agrees with admission for IV antibiotics. Vital Signs Vital signs: Initial Vital Signs Temperature 98.7 F 06/21/25 07:08 Temperature Source Temporal Artery Scan 06/21/25 07:08 Pulse Rate 107 H 06/21/25 07:08 Respiratory Rate 16 06/21/25 07:08 Blood Pressure 138/86 06/21/25 07:08 Blood Pressure Mean 103 06/21/25 07:08 Blood Pressure Position Supine 06/21/25 07:08 Pulse Oximetry 92 06/21/25 07:08 Oxygen Delivery Method Room Air 06/21/25 07:08 Vital Signs Temperature 98.7 F 06/21/25 07:08 Pulse Rate 107 H 06/21/25 07:08 Respiratory Rate 16 06/21/25 07:08 Blood Pressure 138/86 06/21/25 07:08 Pulse Oximetry 92 06/21/25 07:08 Oxygen Delivery Method Room Air 06/21/25 07:08 Temperature 98.2 F 06/22/25 11:00 Pulse Rate 98 06/22/25 11:00 Respiratory Rate 17 06/22/25 11:00 Blood Pressure 147/103 H 06/22/25 11:00 Pulse Oximetry 92 06/22/25 11:00 Oxygen Delivery Method Room Air 06/22/25 11:00 Medications Administered Medications: Discontinued Medications Generic Name Dose Route Start Last Admin Trade Name Freq PRN Reason Stop Dose Admin Bupropion HCl 150 mg 06/22/25 09:00 06/22/25 08:10 Bupropion Hcl Sr 150 Mg Tab PO 150 mg DAILY ELINOR Administration Docusate Sodium 250 mg 06/22/25 09:00 06/22/25 08:10 Docusate Sodium 100 Mg Capsule PO 200 mg DAILY ELINOR Administration Hydrochlorothiazide 25 mg 06/22/25 09:00 06/22/25 08:09 Hydrochlorothiazide 25 Mg Tablet PO 25 mg DAILY ELINOR Administration Hydromorphone HCl 0.5 - 1 mg 06/21/25 17:08 06/22/25 08:09 Hydromorphone 0.5 Mg/0.5 Ml Inj IVP 1 mg Q1H PRN Administration Pain Sodium Chloride 1,000 mls @ 1,000 mls/hr 06/21/25 07:31 06/21/25 09:00 0.9 % Sodium Chloride 1000 Ml IV 06/21/25 08:30 Infused .Q1H ELINOR Infusion Piperacillin Sod/Tazobactam 100 mls @ 200 mls/hr 06/21/25 08:40 06/21/25 19:58 Sod 3.375 gm/ Sodium Chloride IVPB 06/21/25 08:41 Infused ONCE ONE Infusion Sodium Chloride 1,000 mls @ 1,000 mls/hr 06/21/25 08:52 06/21/25 10:54 0.9 % Sodium Chloride 1000 Ml IV 06/21/25 09:51 Not Given .Q1H ELINOR Ertapenem 1 gm/ Sodium 100 mls @ 200 mls/hr 06/21/25 13:00 06/22/25 13:21 Chloride IVPB 200 mls/hr Q24H ELINOR Administration Lactated Ringer's 1,000 mls @ 125 mls/hr 06/21/25 10:25 06/22/25 10:49 Lactated Ringers 1000 Ml IV 125 mls/hr .Q8H ELINOR Administration Ketorolac Tromethamine 15 mg 06/21/25 07:30 06/21/25 08:00 Ketorolac 15 Mg/Ml Inj IVP 06/21/25 07:31 15 mg ONCE ONE Administration Lisinopril 20 mg 06/22/25 09:00 06/22/25 08:10 Lisinopril 20 Mg Tablet PO 20 mg DAILY ELINOR Administration Melatonin 3 mg 06/21/25 10:21 06/21/25 20:49 Melatonin 3 Mg Tablet PO 3 mg HS PRN Administration Morphine Sulfate 2 mg 06/21/25 08:49 06/21/25 08:55 Morphine 2 Mg/Ml Inj IVP 06/21/25 08:50 2 mg ONCE ONE Administration Morphine Sulfate 2 mg 06/21/25 10:33 06/21/25 16:36 Morphine 2 Mg/Ml Inj IVP 2 mg Q1H PRN Administration Nicotine 1 patch 06/21/25 11:00 06/22/25 10:49 Nicotine 21 Mg Patch TRANSDERMA 1 patch Q24H ELINOR Administration Ondansetron HCl 4 mg 06/21/25 07:30 06/21/25 08:00 Ondansetron 2 Mg/Ml Inj IVP 06/21/25 07:31 4 mg ONCE ONE Administration Oxycodone HCl 5 mg 06/21/25 10:21 06/22/25 08:18 Oxycodone 5 Mg Tablet PO 5 mg Q2H PRN Administration Pain Polyethylene Glycol 17 gm 06/21/25 10:21 06/21/25 11:44 Polyethylene Glycol 3350 17 Gm Pack PO 06/21/25 10:22 17 gm ONCE ONE Administration Polyethylene Glycol 17 gm 06/22/25 09:00 06/22/25 08:10 Polyethylene Glycol 3350 17 Gm Pack PO 17 gm DAILY ELINOR Administration Sodium Chloride 5 ml 06/21/25 21:00 06/22/25 08:10 Sodium Chloride 0.9 % (Flush) 10 Ml Syringe IVF 5 ml BID ELINOR Administration MDM - Abdominal Pain MDM Narrative Medical decision making narrative: 1. Sigmoid abscess-white count and CRP are elevated. patient noted to have developed abdominal pain 48 hours after unremarkable colonoscopy. CT positive for sigmoid abscess. It does raise concern regarding microperforation. Patient will need to be admitted to the hospital for IV antibiotics. Zosyn 3.375 g IV given in the ED. consult with our surgeon. 2. Abdominal pain-patient had moderate improvement of pain with Toradol 15 mg IV, Zofran 4 mg IV. Have now ordered morphine 2 mg IV. 3. Disposition-patient will be inpatient admission under the care of hospitalist Dr. Terry for ongoing evaluation, IV antibiotics and surgical consultation. Medical Records Attestation: I reviewed the patient's medical records. Lab Data Attestation: I reviewed the patient's lab results. Labs: Lab Results 06/21/25 Range/Units 07:45 WBC 12.57 H (4.50-11.00) K/uL RBC 5.81 (4.30-5.90) m/uL Hgb 16.8 (13.5-17.5) gm/dL Hct 51.7 (37.0-53.0) % MCV 89 (80-100) fL MCH 29 (26-34) pg MCHC 33 (32-36) gm/dL RDW Coeff of [place]der 12.8 (11.5-15.5) % Plt Count 333 (140-440) K/uL Neut % (Auto) 70.7 (42.0-72.0) % Lymph % (Auto) 18.1 L (20-44) % [place] % (Auto) 8.7 (0.0-11.0) % Eos % (Auto) 1.4 (0.0-7.0) % Baso % (Auto) 0.4 (0.0-3.0) % Neut # (Auto) 8.90 H (1.7-7.0) K/uL Lymph # (Auto) 2.30 (0.90-2.90) K/uL [place] # (Auto) 1.10 H (0.00-0.90) K/UL Eos # (Auto) 0.20 (0.00-0.50) K/uL Baso # (Auto) 0.10 (0.00-0.30) K/uL Abs Immat Gran (auto) 0.10 (0.00-0.30) K/uL Imm/Tot Granulo (auto) 0.7 % Sodium 137 (135-149) mmol/L Potassium 4.2 (3.6-5.1) mmol/L Chloride 97 (96-114) mmol/L Carbon Dioxide 28 (20-32) mmol/L Anion Gap 12 (7-15) mEq/L BUN 26 (7-30) mg/dL Creatinine 1.1 (0.5-1.5) mg/dL Estimated Creat Clear 59.98 Estimated GFR 80 ml/min Glucose 120 H (60-115) mg/dL Lactate 1.4 (0.5-1.9) mmol/L Calcium 9.4 (8.4-10.6) mg/dL Total Bilirubin 0.7 (0.1-1.5) mg/dL AST 24 (12-35) U/L ALT 21 (4-50) U/L Alkaline Phosphatase 104 (40-150) U/L C-Reactive Protein 5.9 H (0.5-1.0) mg/dL Total Protein 8.5 H (6.0-8.3) g/dL Albumin 4.4 (3.3-5.0) g/dL Imaging Data CT scan - abdomen: Attestation: I have reviewed the pertinent imaging results. Radiologist's impression: Lower chest: Mild dependent atelectasis. Liver: Normal in size and attenuation. No suspicious masses. Gallbladder and bile ducts: No stones or inflammation. No biliary dilatation. Pancreas: No mass or inflammation. Spleen: Normal in size. No masses. Adrenal glands: No suspicious mass. Kidneys: Bilateral kidneys are normal in size with symmetric enhancement. No nephrolithiasis or hydronephrosis. GI tract: Diffuse edematous circumferential wall thickening of the sigmoid colon with moderate adjacent fatty stranding. Multiple sigmoid diverticulosis. Normal appendix. No bowel obstruction. No free intraperitoneal air or fluid. Vasculature: Abdominal aorta is normal in caliber. Mild atherosclerosis. Lymph nodes: Few pericolic lymph nodes, subcentimeter in size around the sigmoid colon, likely reactive. Peritoneum/Abdominal Wall: No free air or significant free fluid. Pelvis: Diffuse edematous wall thickening of the sigmoid. There is small intramural abscess involving the anterior superior wall measuring 3.9 x 3.8 x 1.3 cm. Prostate is slightly prominent measuring 5.5 x 4.2 cm. Bones: Unremarkable for age. IMPRESSION: Small intramural abscess involving sigmoid with sigmoid colitis. No discrete soft tissue mass identified. Correlate with recently performed colonoscopy. Few adjacent subcentimeter size lymph nodes, likely reactive. No free air to suspect the perforation. Please note that all CT scans at this facility use dose modulation, iterative reconstruction, and/or weight-based dosing when appropriate to reduce radiation dose to as low as reasonably achievable. Dictated by Sadie Stafford MD @ 06/21/2025 8:35:07 AM ----- ADDENDUM ----- Please read 1st line of impression as below: Small intramural abscess involving sigmoid colon with changes of sigmoid colitis/diverticulitis. Discharge Plan Discharge Clinical Impression: Abscess of sigmoid colon Abdominal pain Qualifiers: Abdominal location: unspecified location Qualified Code(s): R10.9 - Unspecified abdominal pain Patient Disposition: Admitted As Inpatient Condition: Improved Activity Level: Activity as Tolerated Discharge Diet: Low Fiber
--- NOTE | 2025-06-21 07:30 | CRLHL7_ITS ---
For Patients: As a result of the Century Cures Act, medical imaging exams and procedure reports are released immediately into your electronic medical record. You may view this report before your referring provider. If you have questions, please contact your health care provider. INDICATION: Lower abdominal pain, post colonoscopy TECHNIQUE: CT abdomen and pelvis acquired with 100 cc Isovue 370 IV contrast. COMPARISON: CT abdomen and pelvis February 2022 FINDINGS: Lower chest: Mild dependent atelectasis. Liver: Normal in size and attenuation. No suspicious masses. Gallbladder and bile ducts: No stones or inflammation. No biliary dilatation. Pancreas: No mass or inflammation. Spleen: Normal in size. No masses. Adrenal glands: No suspicious mass. Kidneys: Bilateral kidneys are normal in size with symmetric enhancement. No nephrolithiasis or hydronephrosis. GI tract: Diffuse edematous circumferential wall thickening of the sigmoid colon with moderate adjacent fatty stranding. Multiple sigmoid diverticulosis. Normal appendix. No bowel obstruction. No free intraperitoneal air or fluid. Vasculature: Abdominal aorta is normal in caliber. Mild atherosclerosis. Lymph nodes: Few pericolic lymph nodes, subcentimeter in size around the sigmoid colon, likely reactive. Peritoneum/Abdominal Wall: No free air or significant free fluid. Pelvis: Diffuse edematous wall thickening of the sigmoid. There is small intramural abscess involving the anterior superior wall measuring 3.9 x 3.8 x 1.3 cm. Prostate is slightly prominent measuring 5.5 x 4.2 cm. Bones: Unremarkable for age. IMPRESSION: Small intramural abscess involving sigmoid with sigmoid colitis. No discrete soft tissue mass identified. Correlate with recently performed colonoscopy. Few adjacent subcentimeter size lymph nodes, likely reactive. No free air to suspect the perforation. Please note that all CT scans at this facility use dose modulation, iterative reconstruction, and/or weight-based dosing when appropriate to reduce radiation dose to as low as reasonably achievable. Dictated by Sadie Stafford MD @ 06/21/2025 8:35:07 AM (Electronically Signed)
[2025-06-21 07:51] LABS: Lactate* 1.4 mmol/L (0.5-1.9)
[2025-06-21 07:54] LABS: Hematocrit* 51.7 % (37.0-53.0); Hemoglobin* 16.8 gm/dL (13.5-17.5); Immature Granulocytes Pct Auto 0.7 %; Mean Corpuscular HGB Conc 33 gm/dL (32-36); Mean Corpuscular Hemoglobin 29 pg (26-34); Mean Corpuscular Volume 89 fL (80-100); RDW Coefficient of Variation % 12.8 % (11.5-15.5); Red Blood Count* 5.81 m/uL (4.30-5.90); White Blood Count* 12.57 K/uL (4.50-11.00)
[2025-06-21] MEDS: ONDANSETRON 2 MG/ML inj 4 MG IVP (08:00)
[2025-06-21 08:10] LABS: Albumin* 4.4 g/dL (3.3-5.0); Chloride* 97 mmol/L (96-114)
[2025-06-21 08:11] LABS: Potassium* 4.2 mmol/L (3.6-5.1); Sodium* 137 mmol/L (135-149)
[2025-06-21 08:13] LABS: Blood Urea Nitrogen* 26 mg/dL (7-30); Creatinine* 1.1 mg/dL (0.5-1.5); Est. Creatinine Clearance* 59.98; Estimated Glomerular Filt Rate 80 ml/min
[2025-06-21 08:14] LABS: Alanine Aminotransferase* 21 U/L (4-50); Alkaline Phosphatase* 104 U/L (40-150); Anion Gap 12 mEq/L (7-15); Aspartate Amino Transferase* 24 U/L (12-35); Bilirubin Total* 0.7 mg/dL (0.1-1.5); Calcium* 9.4 mg/dL (8.4-10.6); Carbon Dioxide* 28 mmol/L (20-32); Glucose* 120 mg/dL (60-115); Total Protein* 8.5 g/dL (6.0-8.3)
[2025-06-21 08:26] LABS: Immature Granulocytes Abs Auto 0.10 K/uL (0.00-0.30); Lymphocytes Absolute Auto 2.30 K/uL (0.90-2.90); Slide Review Reflex No
[2025-06-21] MEDS: PIPERACILLIN/TAZOBACTAM 3.375 GM in 0.9 % SODIUM CHLORIDE Mini-bag 100 ML IVPB (08:55)
[2025-06-21] MEDS: LACTATED RINGERS 1000 ML 1,000 ML 125 ML IV ×2 (10:52→19:12)
[2025-06-21] MEDS: NICOTINE 21 MG PATCH 1 PATCH TRANSDERMA (11:44)
--- NOTE | 2025-06-21 12:44 | PM.IMHP1 ---
Assessment and Plan Assessment and plan (1) Abscess of sigmoid colon: Problem comment: Marked inflammation of the sigmoid colon seen on CT scan and intramural abscess. Treat with IV ertapenem. IV fluids and pain medicines Clear liquid diet. Consider outpatient IV antibiotics due to severity of findings on CT Status: Acute (2) Tobacco abuse: Problem comment: Continue to encourage smoking cessation. I recommended patient consider switching to nicotine replacement rather than smoking tobacco Status: Acute (3) Diverticulosis: Problem comment: Hx diverticulitis with abscess 02/2022 treated nonoperatively. Status: Chronic (4) Mild obstructive sleep apnea: Problem comment: and Inadequate sleep hygiene. Prescribed CPAP by [facility] 09/29/23. Not on CPAP Status: Chronic (5) History of adenomatous polyp of colon: Problem comment: Multiple recurrent adenomatous polyps. Colonoscopy 06/13/2025. Needs ongoing surveillance. Status: Acute (6) Primary hypertension: Problem comment: Continue home blood pressure medications. Status: Acute (7) Financial insecurity due to medical expenses: Problem comment: Continued discussion with patient minimizing medical costs and obtaining insurance. Status: Acute Plan Patient is hospitalized for IV antibiotics, IV fluids, pain medication and monitoring of clinical course. Total Time Spent Total Time Spent: Total time spent today is 60 minutes in reviewing outside records, coordination of care, discussion with patient and other providers management of colitis/diverticulitis Hospitalist- H&P: HPI History of Present Illness Date Seen: 06/21/25 Chief complaint: stomach pain Narrative: Oneil Day is a 54 year old male admitted to the hospital with a 5 day history of left lower quadrant abdominal pain. On June 13, 8 days ago, he underwent colonoscopy with multiple polypectomy, 7 hyperplastic polyps and 1 sessile serrated adenoma were removed from his sigmoid colon. He had no problems until 3 days afterwards when he began to have left lower quadrant abdominal pain. Not aware of fever but did have episodes of chills. He is had very little to eat in the past week but has been able to tolerate some water. He has had minimal bowel movement with primarily bloody mucus per rectum. Noted on the colonoscopy were findings of with inflammation in the sigmoid colon. Biopsy did not show chronic colitis but did show colonic mucosa with nonspecific regenerative change and Paneth cell metaplasia. This was thought to be nonspecific but possibly related to diverticular disease or infectious or ischemic colitis or NSAID injury. Patient reports that he has not had significant symptoms of colorectal disease prior to his colonoscopy. The colonoscopy was done because of a previous history of adenomatous polyps. Five or 6 Years ago he had colonoscopy with removal of 24 polyps. Outside notes indicating adenomatous polyps but I have no further details about this. No family history of colon cancer. Mom and sister both had breast cancer. Review of Systems Narrative: He reports feeling well except for the last 5 days of left lower quadrant pain, poor appetite, occasional small mucousy and bloody stools and chills. No shortness of breath, chest pain, other abdominal pain. No urinary problems. He reports a couple weeks ago he had an episode of chest pain that lasted a couple hours. He went to the emergency room where he had evaluation that showed he did not have a heart attack. He was referred for a stress test but has not yet scheduled it due to financial concerns. He has not had any other chest pain. Medical Decision Making Medical Decision Making Has patient completed a Health Care Directive: No [facility] Medical History (Updated 06/21/25 @ 13:01 by Andrea Terry MD) History of basal cell carcinoma (BCC) ?Z85.828 - Personal history of other malignant neoplasm of skin (ICD-10) Diverticulosis ?K57.90 - Diverticulosis of intestine, part unspecified, without perforation or abscess without bleeding (ICD-10) Raynaud's disease ?I73.00 - Raynaud's syndrome without gangrene (ICD-10) Mild obstructive sleep apnea ?G47.33 - Obstructive sleep apnea (adult) (pediatric) (ICD-10) History of adenomatous polyp of colon ?Z86.0101 - Personal history of adenomatous and serrated colon polyps (ICD-10) Tobacco abuse ?Z72.0 - Tobacco use (ICD-10) Cervical radiculopathy ?M54.12 - Radiculopathy, cervical region (ICD-10) GERD (gastroesophageal reflux disease) ?K21.9 - Gastro-esophageal reflux disease without esophagitis (ICD-10) Restless leg syndrome ?G25.81 - Restless legs syndrome (ICD-10) Primary hypertension ?I10 - Essential (primary) hypertension (ICD-10) Mixed hyperlipidemia ?E78.2 - Mixed hyperlipidemia (ICD-10) Surgical History (Updated 06/21/25 @ 12:58 by Andrea Terry MD) H/O cervical spine surgery ?Z98.890 - Other specified postprocedural states (ICD-10) History of hernia repair ?Z98.890 - Other specified postprocedural states (ICD-10) ?Z87.19 - Personal history of other diseases of the digestive system (ICD-10) History of shoulder surgery ?Z98.890 - Other specified postprocedural states (ICD-10) History of lumbar discectomy (2019) ?Z98.890 - Other specified postprocedural states (ICD-10) History of left knee surgery ?Z98.890 - Other specified postprocedural states (ICD-10) Family History (Updated 06/21/25 @ 12:52 by Andrea Terry MD) Mother Breast cancer High blood pressure Brother Rheumatoid arthritis Father High blood pressure Maternal Grandmother Breast cancer Sister High blood pressure Breast cancer Uncle Diabetes Testicular cancer Social History (Updated 06/21/25 @ 12:54 by Andrea Terry MD) Narrative: He lives in [place] with his fiancee, Betty Thomas. She is healthcare power of head waiter/waitress banquet. 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 He reports he does not have health insurance and has concerns about the costs of his healthcare. Code status is full. Previously smoked up to 2 packs of cigarettes per day. Has now cut down to about a half pack a cigarettes per day. He does not drink alcohol. He does smoke marijuana about 2 or 3 times per day What is your current living situation?: I presently have a place to live Problems where you live: no known problems In the past 12 months, utilities in danger of being shut off: no In past 12 months, lack of transportation kept you from medical appts, meetings, work, or getting things needed for daily living: no In the past 12 mos, have been you worried that your food would run out before you had money to buy more?: never true In the past 12 mos, the food you bought just didn't last and you didn't have money to buy more?: never true Smoking Status: Current every day smoker What tobacco products do you use: cigarettes Smoking packs per day: 1 Smoking cigarettes per day: 20.0 Do you use any of these nicotine containing products: None How often do you have a drink containing alcohol: never How often do you have six or more drinks on one occasion: Never AUDIT-C Alcohol total score: 0 Non-prescribed substance use: marijuana (any form) How often does anyone, including family, friends and others, physically hurt you: never How often does anyone, including family, friends and others, insult or talk down to you: never How often does anyone, including family, friends and others, threaten you with harm: never How often does anyone, including family, friends and others, scream or curse at you: never service: No Meds Home Medications and Allergies Home Medications ?Medication ?Instructions ?Recorded ?Confirmed ?Type lisinopril 20 1 tab PO QDAY #30 tabs 05/12/25 06/21/25 Rx mg-hydrochlorothiazide 25 mg tablet bupropion HCl 150 mg tablet,12 hr 150 mg PO DAILY 06/21/25 06/21/25 History sustained-release (Wellbutrin SR) docusate sodium 250 mg capsule 250 mg PO DAILY 06/21/25 06/21/25 History (DSS) Allergies Allergy/AdvReac Type Severity Reaction Status Date / Time acetaminophen (From Vicodin) AdvReac Mild Rash Verified 06/21/25 08:02 hydrocodone (From Vicodin) AdvReac Mild Rash Verified 06/21/25 08:02 Exam Narrative: Exam Narrative: He is alert and appears in no distress. He gives his own history. Oropharynx is normal. Neck is supple without mass or adenopathy. Respirations are clear to auscultation. Cardiovascular: S1, S2, regular rate and rhythm. Abdomen: Bowel sounds are active. Abdomen is soft with mild left lower quadrant tenderness. This is just to the left to the midline in the suprapubic area. There is no mass. No peritonitis. External genitalia normal. Extremities without edema. Feet are warm to touch. Good capillary refill. Good pulses. Const: Vital Signs, click to edit/add: Vital Signs - 24 hr 06/21/25 07:08 06/21/25 09:00 06/21/25 09:04 Temperature 98.7 F Pulse Rate [Pulse Oximeter] 107 H 89 Respiratory Rate 16 16 Blood Pressure [Ri ght Upper Arm] 138/86 124/81 Pulse Oximetry 92 91 91 Oxygen Delivery Me thod Room Air Room Air Hospitalist - H&P: Result Labs Labs: Short CBC 06/21/25 Range/Units 07:45 WBC 12.57 H (4.50-11.00) K/uL Hgb 16.8 (13.5-17.5) gm/dL Hct 51.7 (37.0-53.0) % Plt Count 333 (140-440) K/uL BMP 06/21/25 07:45 Sodium 137 Potassium 4.2 Chloride 97 Carbon Dioxide 28 BUN 26 Creatinine 1.1 Glucose 120 H Calcium 9.4 Liver Function 06/21/25 Range/Units 07:45 Total Bilirubin 0.7 (0.1-1.5) mg/dL AST 24 (12-35) U/L ALT 21 (4-50) U/L Alkaline Phosphatase 104 (40-150) U/L Albumin 4.4 (3.3-5.0) g/dL Imaging CT scan - abdomen: Radiologist's impression: INDICATION: Lower abdominal pain, post colonoscopy TECHNIQUE: CT abdomen and pelvis acquired with 100 cc Isovue 370 IV contrast. COMPARISON: CT abdomen and pelvis February 2022 FINDINGS: Lower chest: Mild dependent atelectasis. Liver: Normal in size and attenuation. No suspicious masses. Gallbladder and bile ducts: No stones or inflammation. No biliary dilatation. Pancreas: No mass or inflammation. Spleen: Normal in size. No masses. Adrenal glands: No suspicious mass. Kidneys: Bilateral kidneys are normal in size with symmetric enhancement. No nephrolithiasis or hydronephrosis. GI tract: Diffuse edematous circumferential wall thickening of the sigmoid colon with moderate adjacent fatty stranding. Multiple sigmoid diverticulosis. Normal appendix. No bowel obstruction. No free intraperitoneal air or fluid. Vasculature: Abdominal aorta is normal in caliber. Mild atherosclerosis. Lymph nodes: Few pericolic lymph nodes, subcentimeter in size around the sigmoid colon, likely reactive. Peritoneum/Abdominal Wall: No free air or significant free fluid. Pelvis: Diffuse edematous wall thickening of the sigmoid. There is small intramural abscess involving the anterior superior wall measuring 3.9 x 3.8 x 1.3 cm. Prostate is slightly prominent measuring 5.5 x 4.2 cm. Bones: Unremarkable for age. IMPRESSION: Small intramural abscess involving sigmoid with sigmoid colitis. No discrete soft tissue mass identified. Correlate with recently performed colonoscopy. Few adjacent subcentimeter size lymph nodes, likely reactive. No free air to suspect the perforation. Please note that all CT scans at this facility use dose modulation, iterative reconstruction, and/or weight-based dosing when appropriate to reduce radiation dose to as low as reasonably achievable. Dictated by Sadie Stafford MD @ 06/21/2025 8:35:07 AM ----- ADDENDUM ----- Please read 1st line of impression as below: Small intramural abscess involving sigmoid colon with changes of sigmoid colitis/diverticulitis. Dictated by Sadie Stafford MD @ Jun 21 2025 8:36AM (Electronically Signed) For Patients: As a result of the Cures Act, medical imaging exams and procedure reports are released immediately into your electronic medical record. You may view this report before your referring provider. If you have questions, please contact your health care provider. INDICATION: Lower abdominal pain, post colonoscopy TECHNIQUE: CT abdomen and pelvis acquired with 100 cc Isovue 370 IV contrast. COMPARISON: CT abdomen and pelvis February 2022 FINDINGS: Lower chest: Mild dependent atelectasis. Liver: Normal in size and attenuation. No suspicious masses. Gallbladder and bile ducts: No stones or inflammation. No biliary dilatation. Pancreas: No mass or inflammation. Spleen: Normal in size. No masses. Adrenal glands: No suspicious mass. Kidneys: Bilateral kidneys are normal in size with symmetric enhancement. No nephrolithiasis or hydronephrosis. GI tract: Diffuse edematous circumferential wall thickening of the sigmoid colon with moderate adjacent fatty stranding. Multiple sigmoid diverticulosis. Normal appendix. No bowel obstruction. No free intraperitoneal air or fluid. Vasculature: Abdominal aorta is normal in caliber. Mild atherosclerosis. Lymph nodes: Few pericolic lymph nodes, subcentimeter in size around the sigmoid colon, likely reactive. Peritoneum/Abdominal Wall: No free air or significant free fluid. Pelvis: Diffuse edematous wall thickening of the sigmoid. There is small intramural abscess involving the anterior superior wall measuring 3.9 x 3.8 x 1.3 cm. Prostate is slightly prominent measuring 5.5 x 4.2 cm. Bones: Unremarkable for age.
[2025-06-21] MEDS: ERTAPENEM 1 GM in 0.9 % SODIUM CHLORIDE Mini-bag 100 ML IVPB (13:36)
--- NOTE | 2025-06-21 18:04 | P.IMPN_ITS ---
Assessment and Plan Assessment and plan (1) Abscess of sigmoid colon: Problem comment: Marked inflammation of the sigmoid colon seen on CT scan and intramural abscess. Treat with IV ertapenem. IV fluids and pain medicines Clear liquid diet. Consider outpatient IV antibiotics due to severity of findings on CT - discontinue morphine, use dilaudid. Dr. Connors also saw this patient in consultation just after I saw him, so we discussed and she recommends continuing with current plan of care. Status: Acute Plan Patient is hospitalized for IV antibiotics, IV fluids, pain medication and monitoring of clinical course. Total Time Spent Total Time Spent: Total time spent today is 60 minutes in reviewing outside records, coordination of care, discussion with patient and other providers management of colitis/diverticulitis Subjective Time Seen by Provider: 17:40 Date Seen: 06/21/25 Interval history: Nurse called me about the patient having pain requiring more frequent pain medication. I ordered dilaudid (instead of morphine), and he got the dose just before I went to see him. He was already starting to get relief from the dilaudid and noted that it was working much better, pain now a 2/10. He denies nausea or vomiting. Exam Narrative: Exam Narrative: General: No acute distress. Awake, alert, oriented. No pallor. No jaundice. Oropharynx: Mucous membranes moist. Abdomen: Bowel sounds present. Soft, nondistended, mildly tender to palpation in the left lower quadrant, no rebound tenderness or guarding. Const: Vital Signs, click to edit/add: Vital Signs - 24 hr 06/21/25 07:08 06/21/25 09:00 06/21/25 09:04 Temperature 98.7 F Pulse Rate [Pulse Oximeter] 107 H 89 Respiratory Rate 16 16 Blood Pressure [Ri ght Arm] Blood Pressure [Ri ght Upper Arm] 138/86 124/81 Pulse Oximetry 92 91 91 Oxygen Delivery Me thod Room Air Room Air 06/21/25 09:20 06/21/25 09:20 06/21/25 11:00 Temperature 98.7 F 98.7 F Pulse Rate [Pulse Oximeter] 85 85 Respiratory Rate 16 16 16 Blood Pressure [Ri ght Arm] 124/87 124/87 Blood Pressure [Ri ght Upper Arm] Pulse Oximetry 90 90 90 Oxygen Delivery Me thod Room Air Room Air Room Air 06/21/25 15:00 Temperature 97.9 F Pulse Rate [Pulse Oximeter] 85 Respiratory Rate 18 Blood Pressure [Ri ght Arm] 133/93 H Blood Pressure [Ri t Upper Arm] Pulse Oximetry 91 Oxygen Delivery Me thod Room Air Labs Labs: Laboratory Results - last 24 hr 06/21/25 07:45 WBC 12.57 H RBC 5.81 Hgb 16.8 Hct 51.7 MCV 89 MCH 29 MCHC 33 RDW Coeff of Hayder 12.8 Plt Count 333 Neut % (Auto) 70.7 Lymph % (Auto) 18.1 L [place] % (Auto) 8.7 Eos % (Auto) 1.4 Baso % (Auto) 0.4 Neut # (Auto) 8.90 H Lymph # (Auto) 2.30 [place] # (Auto) 1.10 H Eos # (Auto) 0.20 Baso # (Auto) 0.10 Abs Immat Gran (auto) 0.10 Imm/Tot Granulo (auto) 0.7 Sodium 137 Potassium 4.2 Chloride 97 Carbon Dioxide 28 Anion Gap 12 BUN 26 Creatinine 1.1 Estimated Creat Clear 59.98 Estimated GFR 80 Glucose 120 H Lactate 1.4 Calcium 9.4 Total Bilirubin 0.7 AST 24 ALT 21 Alkaline Phosphatase 104 C-Reactive Protein 5.9 H Total Protein 8.5 H Albumin 4.4
--- NOTE | 2025-06-21 18:06 | P.GSCN_ITS ---
History of Present Illness Consult details Date Seen: 06/21/25 Consult date: 06/21/25 Narrative: The patient is a 54-year-old male who presented to the emergency department today with severe left lower quadrant pain. This has been going on for 5 days. He underwent colonoscopy last Monday on June 13. He was found to have several polyps as well as inflammation of his sigmoid. he felt fine for 2 days, however on Monday he began having pain in the left lower abdomen. It became progressively worse. He had not had a bowel movement since his colonoscopy, so he did try taking magnesium citrate. This did result in a bowel movement. He has had nausea and a poor appetite because of the pain but has not had vomiting. He does have a history of colon polyps. No family history of colon cancer. He has bowel movements approximately every other day. They are firm as he describes them. He has known diverticulosis but has never had an episode of diverticulitis where he was treated with antibiotics or hospitalized. He smokes a half a pack of cigarettes per day and is working on quitting. This afternoon he was having pain requiring morphine every hour, however this has improved and his pain is currently 2/10. [facility] Medical History (Updated 06/21/25 @ 18:22 by Rosie Domínguez MD) History of basal cell carcinoma (BCC) ?Z85.828 - Personal history of other malignant neoplasm of skin (ICD-10) Diverticulosis ?K57.90 - Diverticulosis of intestine, part unspecified, without perforation or abscess without bleeding (ICD-10) Raynaud's disease ?I73.00 - Raynaud's syndrome without gangrene (ICD-10) Mild obstructive sleep apnea ?G47.33 - Obstructive sleep apnea (adult) (pediatric) (ICD-10) History of adenomatous polyp of colon ?Z86.0101 - Personal history of adenomatous and serrated colon polyps (ICD- 10) Tobacco abuse ?Z72.0 - Tobacco use (ICD-10) Cervical radiculopathy ?M54.12 - Radiculopathy, cervical region (ICD-10) GERD (gastroesophageal reflux disease) ?K21.9 - Gastro-esophageal reflux disease without esophagitis (ICD-10) Restless leg syndrome ?G25.81 - Restless legs syndrome (ICD-10) Primary hypertension ?I10 - Essential (primary) hypertension (ICD-10) Mixed hyperlipidemia ?E78.2 - Mixed hyperlipidemia (ICD-10) Surgical History (Updated 06/21/25 @ 12:58 by Andrea Terry MD) H/O cervical spine surgery ?Z98.890 - Other specified postprocedural states (ICD-10) History of hernia repair ?Z98.890 - Other specified postprocedural states (ICD-10) ?Z87.19 - Personal history of other diseases of the digestive system (ICD-10) History of shoulder surgery ?Z98.890 - Other specified postprocedural states (ICD-10) History of lumbar discectomy (2019) ?Z98.890 - Other specified postprocedural states (ICD-10) History of left knee surgery ?Z98.890 - Other specified postprocedural states (ICD-10) Family History (Updated 06/21/25 @ 12:52 by Andrea Terry MD) Mother Breast cancer High blood pressure Brother Rheumatoid arthritis Father High blood pressure Maternal Grandmother Breast cancer Sister High blood pressure Breast cancer Uncle Diabetes Testicular cancer Social History (Updated 06/21/25 @ 12:54 by Andrea Terry MD) Narrative: He lives in [place] with his fiancee, Betty Thomas. She is healthcare power of compliance attorney. 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 He reports he does not have health insurance and has concerns about the costs of his healthcare. Code status is full. Previously smoked up to 2 packs of cigarettes per day. Has now cut down to about a half pack a cigarettes per day. He does not drink alcohol. He does smoke marijuana about 2 or 3 times per day What is your current living situation?: I presently have a place to live Problems where you live: no known problems In the past 12 months, utilities in danger of being shut off: no In past 12 months, lack of transportation kept you from medical appts, meetings, work, or getting things needed for daily living: no In the past 12 mos, have been you worried that your food would run out before you had money to buy more?: never true In the past 12 mos, the food you bought just didn't last and you didn't have money to buy more?: never true Highest level of school completed/degree received: 11th grade Smoking Status: Current every day smoker What tobacco products do you use: cigarettes Smoking packs per day: 1 Smoking cigarettes per day: 20.0 Do you use any of these nicotine containing products: None How often do you have a drink containing alcohol: never How often do you have six or more drinks on one occasion: Never AUDIT-C Alcohol total score: 0 Non-prescribed substance use: marijuana (any form) Caffeine: Yes How often does anyone, including family, friends and others, physically hurt you : never How often does anyone, including family, friends and others, insult or talk down to you: never How often does anyone, including family, friends and others, threaten you with harm: never How often does anyone, including family, friends and others, scream or curse at you: never Gender Identity: male service: No Meds Home Medications and Allergies Home Medications ?Medication ?Instructions ?Recorded ?Confirmed ?Type lisinopril 20 1 tab PO QDAY #30 tabs 05/1206/21/25 Rx mg-hydrochlorothiazide 25 mg tablet bupropion HCl 150 mg tablet,12 hr 150 mg PO DAILY 04/0706/21/25 History sustained-release (Wellbutrin SR) docusate sodium 250 mg capsule 250 mg PO DAILY 5 06/21/25 History (DSS) Allergies Allergy/AdvReac Type Severity Reaction Status Date / Time acetaminophen (From Vicodin) AdvReac Mild Rash Verified 06/21/25 08:02 hydrocodone (From Vicodin) AdvReac Mild Rash Verified 06/21/25 08:02 Exam Narrative: Exam Narrative: General appearance: Alert, cooperative, and in no distress Eyes: PERRLA, eye lids clear, and sclera white HENT Head: Normocephalic Ears: External ears normal Pulmonary: Breathing nonlabored on room air Cardiovascular Heart: Regular rate Extremities: warm and well perfused Gastrointestinal Abdomen is soft. He is tender in the left lower quadrant without guarding or rebound. No surgical scars. Musculoskeletal: Extremities: Upper: Both upper extremities have normal joint range of motion and intact strength. Lower: Both lower extremities have normal joint range of motion and intact strength. Skin: Normal skin color, texture, and turgor. Neurologic: No focal deficits Psychiatric: Alert, oriented, cooperative, normal affect. Const: Vital Signs, click to edit/add: Vital Signs - 24 hr 06/21/25 07:08 06/21/25 09:00 06/21/25 09:04 Temperature 98.7 F Pulse Rate [Pulse Oximeter] 107 H 89 Respiratory Rate 16 16 Blood Pressure [Ri ght Arm] Blood Pressure [Ri ght Upper Arm] 138/86 124/81 Pulse Oximetry 92 91 91 Oxygen Delivery Me thod Room Air Room Air 06/21/25 09:20 06/21/25 09:20 06/21/25 11:00 Temperature 98.7 F 98.7 F Pulse Rate [Pulse Oximeter] 85 85 Respiratory Rate 16 16 16 Blood Pressure [Ri ght Arm] 124/87 124/87 Blood Pressure [Ri ght Upper Arm] Pulse Oximetry 90 90 90 Oxygen Delivery Me thod Room Air Room Air Room Air 06/21/25 15:00 Temperature 97.9 F Pulse Rate [Pulse Oximeter] 85 Respiratory Rate 18 Blood Pressure [Ri ght Arm] 133/93 H Blood Pressure [Ri ght Upper Arm] Pulse Oximetry 91 Oxygen Delivery Me thod Room Air Results Labs Labs: Abnormal lab results 06/21/25 Range/Units 07:45 WBC 12.57 H (4.50-11.00) K/uL Lymph % (Auto) 18.1 L (20-44) % Neut # (Auto) 8.90 H (1.7-7.0) K/uL [place] # (Auto) 1.10 H (0.00-0.90) K/UL Glucose 120 H (60-115) mg/dL C-Reactive Protein 5.9 H (0.5-1.0) mg/dL Total Protein 8.5 H (6.0-8.3) g/dL Diabetes panel 06/21/25 Range/Units 07:45 Sodium 137 (135-149) mmol/L Potassium 4.2 (3.6-5.1) mmol/L Chloride 97 (96-114) mmol/L Carbon Dioxide 28 (20-32) mmol/L BUN 26 (7-30) mg/dL Creatinine 1.1 (0.5-1.5) mg/dL Glucose 120 H (60-115) mg/dL Calcium 9.4 (8.4-10.6) mg/dL AST 24 (12-35) U/L ALT 21 (4-50) U/L Alkaline Phosphatase 104 (40-150) U/L Total Protein 8.5 H (6.0-8.3) g/dL Albumin 4.4 (3.3-5.0) g/dL Calcium panel 06/21/25 Range/Units 07:45 Calcium 9.4 (8.4-10.6) mg/dL Albumin 4.4 (3.3-5.0) g/dL Pituitary panel 06/21/25 Range/Units 07:45 Sodium 137 (135-149) mmol/L Potassium 4.2 (3.6-5.1) mmol/L Chloride 97 (96-114) mmol/L Carbon Dioxide 28 (20-32) mmol/L BUN 26 (7-30) mg/dL Creatinine 1.1 (0.5-1.5) mg/dL Glucose 120 H (60-115) mg/dL Calcium 9.4 (8.4-10.6) mg/dL Adrenal panel 06/21/25 Range/Units 07:45 Sodium 137 (135-149) mmol/L Potassium 4.2 (3.6-5.1) mmol/L Chloride 97 (96-114) mmol/L Carbon Dioxide 28 (20-32) mmol/L BUN 26 (7-30) mg/dL Creatinine 1.1 (0.5-1.5) mg/dL Glucose 120 H (60-115) mg/dL Calcium 9.4 (8.4-10.6) mg/dL Total Bilirubin 0.7 (0.1-1.5) mg/dL AST 24 (12-35) U/L ALT 21 (4-50) U/L Alkaline Phosphatase 104 (40-150) U/L Total Protein 8.5 H (6.0-8.3) g/dL Albumin 4.4 (3.3-5.0) g/dL All other labs normal. Surgical pathology reviewed from colonoscopy- he had 1 sessile serrated adenoma identified as well as several hyperplastic polyps. The sigmoid colon biopsy showed colonic mucosa with nonspecific regenerative change and paneth cell metaplasia - these are nonspecific findings but likely reflect chronic changes related to the patient's diverticular disease, the differential includes resolving infectious or ischemic colitis, mild and set injury or potentially reaction to bowel preparation. Imaging Abdomen CT scan report/results: report reviewed and image reviewed Additional studies: CT abdomen/Pelvis with IV contrast INDICATION: Lower abdominal pain, post colonoscopy TECHNIQUE: CT abdomen and pelvis acquired with 100 cc Isovue 370 IV contrast. COMPARISON: CT abdomen and pelvis February 2022 FINDINGS: Lower chest: Mild dependent atelectasis. Liver: Normal in size and attenuation. No suspicious masses. Gallbladder and bile ducts: No stones or inflammation. No biliary dilatation. Pancreas: No mass or inflammation. Spleen: Normal in size. No masses. Adrenal glands: No suspicious mass. Kidneys: Bilateral kidneys are normal in size with symmetric enhancement. No nephrolithiasis or hydronephrosis. GI tract: Diffuse edematous circumferential wall thickening of the sigmoid colon with moderate adjacent fatty stranding. Multiple sigmoid diverticulosis. Normal appendix. No bowel obstruction. No free intraperitoneal air or fluid. Vasculature: Abdominal aorta is normal in caliber. Mild atherosclerosis. Lymph nodes: Few pericolic lymph nodes, subcentimeter in size around the sigmoid colon, likely reactive. Peritoneum/Abdominal Wall: No free air or significant free fluid. Pelvis: Diffuse edematous wall thickening of the sigmoid. There is small intramural abscess involving the anterior superior wall measuring 3.9 x 3.8 x 1.3 cm. Prostate is slightly prominent measuring 5.5 x 4.2 cm. Bones: Unremarkable for age. IMPRESSION: Small intramural abscess involving sigmoid with sigmoid colitis. No discrete soft tissue mass identified. Correlate with recently performed colonoscopy. Few adjacent subcentimeter size lymph nodes, likely reactive. No free air to suspect the perforation. Dictated by Sadie Stafford MD @ 06/21/2025 8:35:07 AM ----- ADDENDUM ----- Please read 1st line of impression as below: Small intramural abscess involving sigmoid colon with changes of sigmoid colitis/diverticulitis. Dictated by Sadie Stafford MD @ Jun 21 2025 8:36AM Progress Note:A&P Assessment and plan (1) Abscess of sigmoid colon: Status: Acute (2) Tobacco abuse: Status: Acute (3) Diverticulosis: Status: Chronic (4) Financial insecurity due to medical expenses: Status: Acute Plan The patient is a 54-year-old male with diverticulitis and intramural abscess. he recently had a colonoscopy, however there was inflammation present at this time, possibly is this episode of diverticulitis was aggravated by the colonoscopy. We discussed diverticular disease and the management. We discussed when emergency colectomy with ostomy is needed versus semi elective colectomy for complicated diverticular disease. we discussed that given the amount of inflammation at this time I would recommend that when he is ready to discharge home that he go home on IV antibiotics for 7-10 days As well as a soft diet. He does not have health insurance and therefore would like to discharge home as soon as he is able. I explained that since he is still having a fair amount of pain though it seems to be under control this evening, I would recommend we continue to stay as inpatient until we can be sure that he is impro juanita. This would be evident by improvement in pain and inflammatory markers. if and when his symptoms completely resolve, he can gradually return to a high- fiber diet, I would recommend a low residue diet for at least a month. we also discussed smoking cessation. He is currently working on this. He is down to half a pack a day from 2 packs. He is getting this with the help with his primary care provider. I recommended that he continue with this.
--- NOTE | 2025-06-21 18:40 | PC.NURSE ---
End of shift report: Pleasant and cooperative with cares. Abdominal pain well managed with current regimen. Denies any nausea or vomiting. Bowel sounds active x 4 quadrants, denies diarrhea. Passing flatus. Ambulates independently.
[2025-06-21] MEDS: MELATONIN 3 MG TABLET PO (20:49)
[2025-06-21] MEDS: SODIUM CHLORIDE 0.9 % (FLUSH) 10 ML SYRINGE 5 ML IVF (20:51)
[2025-06-21 21:38] LABS: Appearance Urine Clear (Clear)
[2025-06-22 03:03] VITALS: BP 131/88; PULSE 79; RESP 16; TEMP 37; O2SAT 94
[2025-06-22] MEDS: LACTATED RINGERS 1000 ML 1,000 ML 125 ML IV ×2 (03:04→10:49)
--- NOTE | 2025-06-22 05:11 | PC.NURSE ---
Pt rested well this night. Pain controlled with meds. Up IND and voiding. Tolerating clears.
[2025-06-22 07:00] VITALS: BP 142/95; PULSE 108; RESP 18; TEMP 36.8; O2SAT 91
[2025-06-22 07:12] LABS: Hematocrit* 48.4 % (37.0-53.0); Hemoglobin* 15.4 gm/dL (13.5-17.5); Immature Granulocytes Abs Auto 0.02 K/uL (0.00-0.30); Immature Granulocytes Pct Auto 0.2 %; Mean Corpuscular HGB Conc 32 gm/dL (32-36); Mean Corpuscular Hemoglobin 29 pg (26-34); Mean Corpuscular Volume 90 fL (80-100); RDW Coefficient of Variation % 12.6 % (11.5-15.5); Red Blood Count* 5.37 m/uL (4.30-5.90); White Blood Count* 10.96 K/uL (4.50-11.00)
[2025-06-22 07:29] LABS: Lymphocytes Absolute Auto 1.80 K/uL (0.90-2.90); Slide Review Reflex No
[2025-06-22 07:30] LABS: Chloride* 96 mmol/L (96-114); Potassium* 4.5 mmol/L (3.6-5.1); Sodium* 134 mmol/L (135-149)
[2025-06-22 07:32] LABS: Blood Urea Nitrogen* 13 mg/dL (7-30); Creatinine* 0.8 mg/dL (0.5-1.5); Est. Creatinine Clearance* 124.16; Estimated Glomerular Filt Rate 106 ml/min
[2025-06-22 07:33] LABS: Anion Gap 9 mEq/L (7-15); Calcium* 8.7 mg/dL (8.4-10.6); Carbon Dioxide* 29 mmol/L (20-32); Glucose* 88 mg/dL (60-115)
[2025-06-22] MEDS: SODIUM CHLORIDE 0.9 % (FLUSH) 10 ML SYRINGE 5 ML IVF (08:10)
[2025-06-22] MEDS: DOCUSATE SODIUM 100 MG CAPSULE 250 MG PO (08:10)
[2025-06-22] MEDS: NICOTINE 21 MG PATCH 1 PATCH TRANSDERMA (10:49)
[2025-06-22 11:00] VITALS: BP 147/103; PULSE 98; RESP 17; TEMP 36.8; O2SAT 92
[2025-06-22] MEDS: ERTAPENEM 1 GM in 0.9 % SODIUM CHLORIDE Mini-bag 100 ML IVPB (13:21)
--- NOTE | 2025-06-22 13:33 | PM.DS1 ---
DS: Providers Provider Date Seen: 06/22/25 Date of admission: 06/21/25 10:21 Primary care physician: Jamin Sheth MD Admitting Clinician: Andrea Terry MD Attending Physician on discharge: Andrea Terry MD Date of Discharge: 06/22/25 DS: Diagnosis Discharge Diagnosis (1) Abscess of sigmoid colon: Status: Acute Problem details: Marked inflammation of the sigmoid colon seen on CT scan and intramural abscess. Treat with IV ertapenem. IV fluids and pain medicines Clear liquid diet. Consider outpatient IV antibiotics due to severity of findings on CT - discontinue morphine, use dilaudid. Dr. Connors also saw this patient in consultation just after I saw him, so we discussed and she recommends continuing with current plan of care. (2) Diverticulosis: Status: Chronic Problem details: Hx diverticulitis with abscess 02/2022 treated nonoperatively. (3) Tobacco abuse: Status: Acute Problem details: Continue to encourage smoking cessation. I recommended patient consider switching to nicotine replacement rather than smoking tobacco (4) Financial insecurity due to medical expenses: Status: Acute Problem details: Continued discussion with patient minimizing medical costs and obtaining insurance. DS: Summary Hospital Course Hospital Course: Oneil Day is a 54 year old male admitted to the hospital with a 5 day history of left lower quadrant abdominal pain. On June 13, 8 days ago, he underwent colonoscopy with multiple polypectomy, 7 hyperplastic polyps and 1 sessile serrated adenoma were removed from his sigmoid colon. He had no problems until 3 days afterwards when he began to have left lower quadrant abdominal pain. Not aware of fever but did have episodes of chills. He is had very little to eat in the past week but has been able to tolerate some water. He has had minimal bowel movement with primarily bloody mucus per rectum. Noted on the colonoscopy were findings of with inflammation in the sigmoid colon. Biopsy did not show chronic colitis but did show colonic mucosa with nonspecific regenerative change and Paneth cell metaplasia. This was thought to be nonspecific but possibly related to diverticular disease or infectious or ischemic colitis or NSAID injury. Patient reports that he has not had significant symptoms of colorectal disease prior to his colonoscopy. The colonoscopy was done because of a previous history of adenomatous polyps. Five or 6 Years ago he had colonoscopy with removal of 24 polyps. Outside notes indicating adenomatous polyps but I have no further details about this. No family history of colon cancer. Mom and sister both had breast cancer. 06/22/2025: Patient reports no significant pain today. He tolerated breakfast without any discomfort. He is passing gas. No fever. Very anxious to go home Status at Discharge Functional status at discharge: independent ambulation Overall status at discharge: patient is progressing back to baseline Time Spent with Patient Time attestation: Total time spent providing and/or coordinating discharge services: Time spent: Less than 30 minutes Exam Narrative: Exam Narrative: He is alert and appears in no distress. Respirations are clear. Cardiovascular: S1-S2, regular rate and rhythm. Abdomen: Bowel sounds active. Abdomen is soft without tenderness or mass Const: Vital Signs, click to edit/add: Vital Signs - 24 hr 06/21/25 15:00 06/21/25 19:15 06/21/25 22:28 Temperature 97.9 F 98.4 F 98.6 F Pulse Rate [Pulse Oximeter] 85 82 74 Respiratory Rate 18 16 16 Blood Pressure [Ri ght Arm] 133/93 H 129/79 123/76 Pulse Oximetry 91 92 92 Oxygen Delivery Me thod Room Air Room Air Room Air 06/21/25 22:30 06/22/25 03:03 06/22/25 07:00 Temperature 98.6 F 98.3 F Pulse Rate [Pulse Oximeter] 74 79 108 H Respiratory Rate 16 16 18 Blood Pressure [Ri ght Arm] 131/88 142/95 H Pulse Oximetry 94 91 Oxygen Delivery Me thod Room Air Room Air 06/22/25 07:00 06/22/25 11:00 Temperature 98.2 F Pulse Rate [Pulse Oximeter] 108 H 98 Respiratory Rate 18 17 Blood Pressure [Ri ght Arm] 147/103 H Pulse Oximetry 92 Oxygen Delivery Me thod Room Air Documenting provider has reviewed patient's vital signs: yes DS: Data Data Completed and Pending Labs on day of discharge: Labs from last 24 hours 06/22/25 06/21/25 06:00 21:27 WBC 10.96 RBC 5.37 Hgb 15.4 Hct 48.4 MCV 90 MCH 29 MCHC 32 RDW Coeff of [place] 12.6 Plt Count 262 Neut % (Auto) 72.5 H Lymph % (Auto) 16.3 L [place] % (Auto) 9.0 Eos % (Auto) 1.8 Baso % (Auto) 0.2 Neut # (Auto) 7.90 H Lymph # (Auto) 1.80 [place] # (Auto) 1.00 H Eos # (Auto) 0.20 Baso # (Auto) 0.02 Abs Immat Gran (auto) 0.02 Imm/Tot Granulo (auto) 0.2 Sodium 134 L Potassium 4.5 Chloride 96 Carbon Dioxide 29 Anion Gap 9 BUN 13 Creatinine 0.8 Estimated Creat Clear 124.16 Estimated GFR 106 Glucose 88 Calcium 8.7 C-Reactive Protein 5.5 H Urine Color Yellow Urine Appearance Clear Urine pH 5.5 Ur Specific [place] 1.025 Urine Protein Negative Urine Glucose (UA) Negative Urine Ketones 1+ A Urine Blood Negative Urine Nitrite Negative Urine Bilirubin Negative Urine Urobilinogen 0.2 Ur Leukocyte Esterase Negative Urine RBC 0-2 Urine WBC 0-2 Ur Squamous Epith Cells None Urine Bacteria Few A Preliminary micro results at discharge 06/21/25 21:27 Urine Culture - Preliminary Urine,Clean Catch Culture in Progress Imaging CT scan - abdomen: Radiologist's impression: INDICATION: Lower abdominal pain, post colonoscopy TECHNIQUE: CT abdomen and pelvis acquired with 100 cc Isovue 370 IV contrast. COMPARISON: CT abdomen and pelvis February 2022 FINDINGS: Lower chest: Mild dependent atelectasis. Liver: Normal in size and attenuation. No suspicious masses. Gallbladder and bile ducts: No stones or inflammation. No biliary dilatation. Pancreas: No mass or inflammation. Spleen: Normal in size. No masses. Adrenal glands: No suspicious mass. Kidneys: Bilateral kidneys are normal in size with symmetric enhancement. No nephrolithiasis or hydronephrosis. GI tract: Diffuse edematous circumferential wall thickening of the sigmoid colon with moderate adjacent fatty stranding. Multiple sigmoid diverticulosis. Normal appendix. No bowel obstruction. No free intraperitoneal air or fluid. Vasculature: Abdominal aorta is normal in caliber. Mild atherosclerosis. Lymph nodes: Few pericolic lymph nodes, subcentimeter in size around the sigmoid colon, likely reactive. Peritoneum/Abdominal Wall: No free air or significant free fluid. Pelvis: Diffuse edematous wall thickening of the sigmoid. There is small intramural abscess involving the anterior superior wall measuring 3.9 x 3.8 x 1.3 cm. Prostate is slightly prominent measuring 5.5 x 4.2 cm. Bones: Unremarkable for age. IMPRESSION: Small intramural abscess involving sigmoid with sigmoid colitis. No discrete soft tissue mass identified. Correlate with recently performed colonoscopy. Few adjacent subcentimeter size lymph nodes, likely reactive. No free air to suspect the perforation. Please note that all CT scans at this facility use dose modulation, iterative reconstruction, and/or weight-based dosing when appropriate to reduce radiation dose to as low as reasonably achievable. Dictated by Sadie Stafford MD @ 06/21/2025 8:35:07 AM ----- ADDENDUM ----- Please read 1st line of impression as below: Small intramural abscess involving sigmoid colon with changes of sigmoid colitis/diverticulitis. Dictated by Sadie Stafford MD @ Jun 21 2025 8:36AM (Electronically Signed) For Patients: As a result of the Cures Act, medical imaging exams and procedure reports are released immediately into your electronic medical record. You may view this report before your referring provider. If you have questions, please contact your health care provider. INDICATION: Lower abdominal pain, post colonoscopy TECHNIQUE: CT abdomen and pelvis acquired with 100 cc Isovue 370 IV contrast. COMPARISON: CT abdomen and pelvis February 2022 FINDINGS: Lower chest: Mild dependent atelectasis. Liver: Normal in size and attenuation. No suspicious masses. Gallbladder and bile ducts: No stones or inflammation. No biliary dilatation. Pancreas: No mass or inflammation. Spleen: Normal in size. No masses. Adrenal glands: No suspicious mass. Kidneys: Bilateral kidneys are normal in size with symmetric enhancement. No nephrolithiasis or hydronephrosis. GI tract: Diffuse edematous circumferential wall thickening of the sigmoid colon with moderate adjacent fatty stranding. Multiple sigmoid diverticulosis. Normal appendix. No bowel obstruction. No free intraperitoneal air or fluid. Vasculature: Abdominal aorta is normal in caliber. Mild atherosclerosis. Lymph nodes: Few pericolic lymph nodes, subcentimeter in size around the sigmoid colon, likely reactive. Peritoneum/Abdominal Wall: No free air or significant free fluid. Pelvis: Diffuse edematous wall thickening of the sigmoid. There is small intramural abscess involving the anterior superior wall measuring 3.9 x 3.8 x 1.3 cm. Prostate is slightly prominent measuring 5.5 x 4.2 cm. Bones: Unremarkable for age. IMPRESSION: Small intramural abscess involving sigmoid with sigmoid colitis. No discrete soft tissue mass identified. Correlate with recently performed colonoscopy. Few adjacent subcentimeter size lymph nodes, likely reactive. No free air to suspect the perforation. Discharge Plan Discharge Disposition: Home, Self-Care Date of Admission: 06/21/25 10:21 Attending Provider on Discharge: Andrea Terry Consulting Providers: Danielle Connors Primary Care Provider: Jamin Sheth Condition: Improved Anticipated Discharge Date/Time: 06/22/25 13:37 Discharge Medications: Continued lisinopril-hydrochlorothiazide 20-25 mg tablet 1 tab PO QDAY Qty: 30 1RF bupropion HCl [Wellbutrin SR] 150 mg tablet sustained-release 12 hr 150 mg PO DAILY Patient Comments: RX WAS FOR 2X/DAY, PATIENT STATES TAKING DAILY docusate sodium [DSS] 250 mg capsule 250 mg PO DAILY Discharge Orders: Discharge Order (Routine); Ordered 06/22/25 Ordered By: Andrea Terry Patient Education: Low Fiber Diet (ED) Activity Level: Activity as Tolerated Discharge Diet: Low Fiber Follow Up Appointments: Jamin Sheth MD [Primary Care Provider, Family Practice] Forms: [employer] Info Instructions
--- NOTE | 2025-06-22 14:35 | PC.NURSE ---
End of shift report [id number]: Alert and oriented x 4. Pain to abdomen well managed with current regimen. Trial of low fiber diet at breakfast, patient tolerated well without pain, nausea or vomiting. Independent with ambulation throughout room. Discharge instructions reviewed with patient, assisted to personal vehicle.
== END 2025-06-22 14:30 | disposition home or self-care (01) | DRG 392 ==
LOC: ED 08:49 → MEDSURG 09:10
PROVIDERS: Admitting Provider Family Medicine; Emergency Provider Family Medicine; PCP Family Medicine; Visit Provider Family Medicine
DX: K57.20 Diverticulitis of large intestine with perforation and abscess without bleeding (principal); Z59.868 Other specified financial insecurity; Z86.0101 Personal history of adenomatous and serrated colon polyps; Z86.0102 Personal history of hyperplastic colon polyps; G47.33 Obstructive sleep apnea (adult) (pediatric); I10 Essential (primary) hypertension; F17.210 Nicotine dependence, cigarettes, uncomplicated; Z85.828 Personal history of other malignant neoplasm of skin; K21.9 Gastro-esophageal reflux disease without esophagitis; I73.00 Raynaud's syndrome without gangrene; E78.2 Mixed hyperlipidemia; G25.81 Restless legs syndrome
CPT/HCPCS: 36415; 74177; 80048; 80053; 81001; 83605; 85025; 86140; 87086; 94761; 99285; A9270; J1171; J1335; J1885; J2270; J2405; J2543; J7030; J7120; Q9967; S0106; S4990

== ENCOUNTER 2025-06-30 10:38 | Outpatient (CLI) | payer OTHER, SELFPAY ==
--- NOTE | 2025-06-30 11:00 | CRLHL7_ITS ---
For Patients: As a result of the Century Cures Act, medical imaging exams and procedure reports are released immediately into your electronic medical record. You may view this report before your referring provider. If you have questions, please contact your health care provider. Indication: Follow-up abscess Technique: CT Abdomen/Pelvis 102cc ISOVUE 370 intravenous contrast AND WATER PREP Please note that all CT scans at this facility use dose modulation, iterative reconstruction, and/or weight-based dosing when appropriate to reduce radiation dose to as low as reasonably achievable. Comparison: 06/21/2025 Findings: Mild dependent atelectasis in both lung bases. Sub cm cyst within the liver. Gallbladder incompletely distended. No biliary obstruction. Normal spleen. Pancreas normal. Normal adrenal glands. Kidneys are within normal limits. Atherosclerotic changes. No aneurysm. Bladder normal. Resolution of intramural abscess from the sigmoid colon. Segmental thickening of the colon wall involving the sigmoid colon extending over a length of 10.7 cm. Mild residual linear densities in the adjacent fat along with numerous sub cm lymph nodes. No bowel obstruction or free air. No free fluid. No fracture. Mild degenerative joint disease both hips. Impression: Resolution of the previously noted intramural sigmoid colon abscess. Residual extensive mural wall thickening involving the sigmoid colon extending over a length of 10.7 cm with extensive diverticulosis. Mild residual inflammatory changes are present including curvilinear densities and numerous 1 cm or less lymph nodes. Please note that all CT scans at this facility use dose modulation, iterative reconstruction, and/or weight-based dosing when appropriate to reduce radiation dose to as low as reasonably achievable. Dictated by Jamin Thrasher MD @ 06/30/2025 12:10:18 PM (Electronically Signed)
== END 2025-06-30 10:39 | disposition home or self-care (01) ==
LOC: CT 10:40
PROVIDERS: PCP Family Medicine; Visit Provider Family Medicine
DX: K63.0 Abscess of intestine (principal); K57.30 Diverticulosis of large intestine without perforation or abscess without bleeding
CPT/HCPCS: 74177; Q9967

== ENCOUNTER 2025-07-01 10:37 | Outpatient (CLI) | payer OTHER, SELFPAY | END 2025-07-01 10:38 | disposition home or self-care (01) | LOC: NFLDREF 10:38 | PROVIDERS: PCP Family Medicine; Visit Provider Surgery | DX: K57.92 Diverticulitis of intestine, part unspecified, without perforation or abscess without bleeding (principal) | CPT/HCPCS: 86140 ==

== ENCOUNTER 2025-07-08 08:01 | Outpatient (CLI) | payer OTHER, SELFPAY | END 2025-07-08 08:02 | disposition home or self-care (01) | LOC: NFLDREF 08:02 | PROVIDERS: PCP Family Medicine; Visit Provider Surgery | DX: K57.92 Diverticulitis of intestine, part unspecified, without perforation or abscess without bleeding (principal) | CPT/HCPCS: 86140 ==

== ENCOUNTER 2025-07-08 14:18 | Observation (INO) | payer OTHER, SELFPAY ==
--- NOTE | 2025-07-08 14:46 | CRLHL7_ITS ---
For Patients: As a result of the Cures Act, medical imaging exams and procedure reports are released immediately into your electronic medical record. You may view this report before your referring provider. If you have questions, please contact your health care provider. Indication: PICC line placement Technique: Single view of the chest Comparison: Chest radiograph performed 05/26/2025 Findings/Impression: Right PICC terminates in the SVC. No acute cardiopulmonary process detected. Mild atelectasis. Dictated by Nirav Isaacs MD @ 07/08/2025 9:19:33 PM (Electronically Signed)
[2025-07-08 15:00] VITALS: BP 125/84; RESP 14; TEMP 36.9; O2SAT 96
[2025-07-08 15:07] VITALS: BP 125/84; RESP 14; TEMP 36.9; O2SAT 96; BMI 27.1
[2025-07-08 16:04] LABS: Appearance Urine Clear (Clear)
[2025-07-08] MEDS: ERTAPENEM 1 GM in 0.9 % SODIUM CHLORIDE Mini-bag 100 ML IVPB (16:25)
[2025-07-08 19:00] VITALS: BP 141/90; RESP 18; TEMP 36.6; O2SAT 92
--- NOTE | 2025-07-08 20:11 | PM.IMHP1 ---
Assessment and Plan Assessment and plan (1) Diverticulitis: Problem comment: Persisting evidence of diverticulitis. This segment of sigmoid colon looks significantly diseased from diverticulitis and diverticulosis. Surgery is recommending sigmoid colon resection. Status: Acute (2) Abscess of sigmoid colon: Problem comment: Noted on CT scan from 06/21/2025. Resolved on CT from 06/30/2025. Status: Acute (3) Diverticulosis: Problem comment: Hx diverticulitis with abscess 02/2022 treated nonoperatively. Status: Acute (4) Tobacco abuse: Problem comment: Continue to encourage smoking cessation Status: Acute Plan Patient is admitted to the hospital for initiation of IV antibiotics. He is quite adamant that he would like to be discharged as soon as possible. He was able to manage outpatient IV antibiotics previously so will resume that plan. Will start treatment with ceftriaxone 2 g daily plus oral metronidazole 500 mg t.i.d. for 2 weeks. Return to the emergency room if getting worse. Follow-up with general surgery in 10-14 days Total Time Spent Total Time Spent: Total time spent on admission and discharge is 75 minutes in coordination of care and discussing with patient and other providers ongoing evaluation and management of diverticulitis Hospitalist- H&P: HPI History of Present Illness Date Seen: 07/08/25 Chief complaint: Direct admit Narrative: Oneil Day is a 54 year old male admitted to the hospital with ongoing diverticulitis. He was initially admitted to the hospital June 21 2025 with diverticulitis and abscess. He was discharged on June 22 with ongoing ertapenem therapy for 10 days total. After finishing that he was put on Augmentin 875 b.i.d. which he has taken until this morning. He was getting better but did not completely resolve his symptoms prior to switching to oral therapy. While on the oral therapy he thinks he has been slowly getting worse. He has had some troubles with constipation and reports that is painful when he has to strain to have a bowel movement. He has not had any fever. He reports otherwise feeling well. He has been eating normally. He has been back to work. He had a repeat CT scan done on June 30 showing the following findings: Resolution of the previously noted intramural sigmoid colon abscess. Residual extensive mural wall thickening involving the sigmoid colon extending over a length of 10.7 cm with extensive diverticulosis. Mild residual inflammatory changes are present including curvilinear densities and numerous 1 cm or less lymph nodes. Additional history from [facility] on June 21: On June 13, 8 days ago, he underwent colonoscopy with multiple polypectomy, 7 hyperplastic polyps and 1 sessile serrated adenoma were removed from his sigmoid colon. He had no problems until 3 days afterwards when he began to have left lower quadrant abdominal pain. Not aware of fever but did have episodes of chills. He is had very little to eat in the past week but has been able to tolerate some water. He has had minimal bowel movement with primarily bloody mucus per rectum. Noted on the colonoscopy were findings of with inflammation in the sigmoid colon. Biopsy did not show chronic colitis but did show colonic mucosa with nonspecific regenerative change and Paneth cell metaplasia. This was thought to be nonspecific but possibly related to diverticular disease or infectious or ischemic colitis or NSAID injury. Patient reports that he has not had significant symptoms of colorectal disease prior to his colonoscopy. The colonoscopy was done because of a previous history of adenomatous polyps. Five or 6 Years ago he had colonoscopy with removal of 24 polyps. Outside notes indicating adenomatous polyps but I have no further details about this. No family history of colon cancer. Mom and sister both had breast cancer. Review of Systems Narrative: No other recent symptoms of illness or other medical concerns. Medical Decision Making Medical Decision Making Has patient completed a Health Care Directive: No During This Stay, Who Would You Like To Make Decisions For You In The Event You Are Unable To Make Them For Yourself?: [facility] Medical History (Updated 07/08/25 @ 20:20 by Andrea Terry MD) Diverticulosis ?K57.90 - Diverticulosis of intestine, part unspecified, without perforation or abscess without bleeding (ICD-10) History of basal cell carcinoma (BCC) ?Z85.828 - Personal history of other malignant neoplasm of skin (ICD-10) Raynaud's disease ?I73.00 - Raynaud's syndrome without gangrene (ICD-10) Mild obstructive sleep apnea ?G47.33 - Obstructive sleep apnea (adult) (pediatric) (ICD-10) History of adenomatous polyp of colon ?Z86.0101 - Personal history of adenomatous and serrated colon polyps (ICD-10) Tobacco abuse ?Z72.0 - Tobacco use (ICD-10) Cervical radiculopathy ?M54.12 - Radiculopathy, cervical region (ICD-10) GERD (gastroesophageal reflux disease) ?K21.9 - Gastro-esophageal reflux disease without esophagitis (ICD-10) Restless leg syndrome ?G25.81 - Restless legs syndrome (ICD-10) Primary hypertension ?I10 - Essential (primary) hypertension (ICD-10) Mixed hyperlipidemia ?E78.2 - Mixed hyperlipidemia (ICD-10) Surgical History H/O cervical spine surgery ?Z98.890 - Other specified postprocedural states (ICD-10) History of hernia repair ?Z98.890 - Other specified postprocedural states (ICD-10) ?Z87.19 - Personal history of other diseases of the digestive system (ICD-10) History of shoulder surgery ?Z98.890 - Other specified postprocedural states (ICD-10) History of lumbar discectomy (2019) ?Z98.890 - Other specified postprocedural states (ICD-10) History of left knee surgery ?Z98.890 - Other specified postprocedural states (ICD-10) Family History Mother Breast cancer High blood pressure Brother Rheumatoid arthritis Father High blood pressure Maternal Grandmother Breast cancer Sister High blood pressure Breast cancer Uncle Diabetes Testicular cancer Social History Narrative: He lives in [place] with his fiancee, Betty Thomas. She is healthcare power of divorce attorney. 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 He reports he does not have health insurance and has concerns about the costs of his healthcare. Code status is full. Previously smoked up to 2 packs of cigarettes per day. Has now cut down to about a half pack a cigarettes per day. He does not drink alcohol. He does smoke marijuana about 2 or 3 times per day What is your current living situation?: I presently have a place to live Problems where you live: no known problems In the past 12 months, utilities in danger of being shut off: no In past 12 months, lack of transportation kept you from medical appts, meetings, work, or getting things needed for daily living: no In the past 12 mos, have been you worried that your food would run out before you had money to buy more?: never true In the past 12 mos, the food you bought just didn't last and you didn't have money to buy more?: never true Highest level of school completed/degree received: 11th grade Smoking Status: Current every day smoker What tobacco products do you use: cigarettes Smoking packs per day: 1 Smoking cigarettes per day: 20.0 Do you use any of these nicotine containing products: None How often do you have a drink containing alcohol: never How often do you have six or more drinks on one occasion: Never AUDIT-C Alcohol total score: 0 Non-prescribed substance use: marijuana (any form) Caffeine: Yes How often does anyone, including family, friends and others, physically hurt you: never How often does anyone, including family, friends and others, insult or talk down to you: never How often does anyone, including family, friends and others, threaten you with harm: never How often does anyone, including family, friends and others, scream or curse at you: never Gender Identity: male service: No Meds Home Medications and Allergies Home Medications ?Medication ?Instructions ?Recorded ?Confirmed ?Type bupropion HCl 150 mg tablet,12 hr 150 mg PO BID 06/21/25 07/08/25 History sustained-release (Wellbutrin SR) docusate sodium 250 mg capsule 250 mg PO DAILY 06/21/25 07/08/25 History (DSS) amoxicillin 875 mg-potassium 1 tab PO BID #14 tabs 07/01/25 07/08/25 Rx clavulanate 125 mg tablet lisinopril 20 1 tab PO DAILY 07/08/25 07/08/25 History mg-hydrochlorothiazide 25 mg tablet Allergies Allergy/AdvReac Type Severity Reaction Status Date / Time hydrocodone (From Vicodin) AdvReac Mild Rash Verified 07/08/25 11:59 Exam Narrative: Exam Narrative: He is alert and appears in no distress. He gives his own history. Oropharynx is normal. Neck is supple without mass or adenopathy. Respirations are clear to auscultation. Cardiovascular: S1, S2, regular rate and rhythm. Abdomen: Bowel sounds are present. Abdomen is soft. He has mild lower abdominal tenderness in the suprapubic area and left lower quadrant. No peritonitis. Extremities without edema. Good peripheral pulses. Const: Vital Signs, click to edit/add: Vital Signs - 24 hr 07/08/25 15:00 07/08/25 15:07 07/08/25 15:07 Temperature 98.5 F 98.5 F Respiratory Rate 14 14 14 Blood Pressure [Ri ght Arm] 125/84 125/84 Pulse Oximetry 96 96 96 Oxygen Delivery Me thod Room Air Room Air Room Air 07/08/25 19:00 Temperature 97.8 F Respiratory Rate 18 Blood Pressure [Ri ght Arm] 141/90 H Pulse Oximetry 92 Oxygen Delivery Me thod Room Air Documenting provider has reviewed patient's vital signs: yes Hospitalist - H&P: Result Labs Labs: Urine 07/08/25 Range/Units 15:48 Urine Color Yellow (Yellow) Urine Appearance Clear (Clear) Urine pH 6.0 (5.0-8.5) Ur Specific [place] 1.015 (1.000-1.030) Urine Protein Negative (Negative) Urine Glucose (UA) Negative (Negative)
[2025-07-08 22:04] LABS: Lab Add On Test New Spec Needed
--- NOTE | 2025-07-08 22:19 | PC.NURSE ---
Pt a/o x4, pain reported 5/10, pt stated pain is tolerable and declined pain meds/interventions. Pt on low fiber diet, meal tolerated. Ind in room, picc line patent and intact, Left PIV removed with cath intact. Pt given D/C education written and verbal. Pt had no questions or concerns, pt ambulated out of facility at 21:40
== END 2025-07-08 21:40 | disposition home or self-care (01) ==
PROVIDERS: Admitting Provider Family Medicine; PCP Family Medicine; Visit Provider Family Medicine
DX: K57.33 Diverticulitis of large intestine without perforation or abscess with bleeding (principal); K57.30 Diverticulosis of large intestine without perforation or abscess without bleeding; Z72.0 Tobacco use
CPT/HCPCS: 81003; 96365; A4221; C1751; G0378; J1335; S4990